=== PATIENT | female | born 1980 | race Caucasian/White ===

== ENCOUNTER → 2019-10-28 07:27 | Outpatient (CLI) | payer OTHER, SELFPAY ==
[2019-10-28 10:09] LABS: Absolute Lymphocyte Count 2.07 X10^3/uL (0.83-4.51); Absolute Neutrophil Count 3.4 X10^3/uL (2.0-7.7); Basophil# 0.03 X10^3/uL; Basophil% 0.5 % (0-1); Eosinophil# 0.04 X10^3/uL; Eosinophils% 0.6 % (0-5); Hematocrit 44.8 % (37-47); Hemoglobin 14.7 g/dL (12.0-15.0); Lymphocyte # 2.07 X10^3/ul (4.0); Mean Corp Hgb Conc 32.8 g/dL (32-36); Mean Corpuscular Hgb 28.8 pg (27.0-32.0); Mean Corpuscular Volume 87.8 fL (81-99); Mean Platelet Vol. 9.7 fl (6.2-12.0); Monocyte# 0.71 X10^3/uL; Monocyte% 11.3 % (0-10); NRBC Flagged by Analyzer 0 % (0-5); Neutrophil % 54.3 % (47-70); Platelet Count 341 K/mm3 (150-450); RBC Distribution Width CV 12.7 % (11.6-14.6); RBC Distribution Width SD 41.2 fl (35.1-43.9); White Blood Count 6.3 K/mm3 (4.4-11.0)
[2019-10-28 10:37] LABS: ALB/GLOB Ratio 1.2 RATIO (0.9-2.4); AST(SGOT) 14 U/L (15-37); Alanine Aminotransfer ALT/SGPT 28 U/L (13-56); Albumin, Serum 4.5 g/dL (3.2-5.0); Alkaline Phosphatase 52 U/L (45-117); Anion Gap 6 (5-15); BUN 15 mg/dL (7-18); BUN/Creat Ratio 19.8 RATIO (10-20); Calcium,Total 9.9 mg/dL (8.5-10.1); Chloride 104 mmol/L (98-107); Creatinine, Serum 0.76 mg/dL (0.55-1.02); EST Glomerular Filtration Rate 90 mL/min (>60); Est Glom Filt Rate - Afr Amer 109 mL/min (>60); Globulin 3.8 g/dL (2.2-4.2); Glucose 79 mg/dL (74-106); Potassium 3.9 mmol/L (3.5-5.1); Protein, Total 8.3 g/dL (6.4-8.2); Sodium Level 136 mmol/L (136-145); Thyroid Stim Hormone (TSH) 2.04 uIU/mL (0.358-3.74)
[2019-10-29 09:49] LABS: Thyroid Peroxidase AB 10 IU/mL (0-34)
[2020-04-04 08:14] VITALS: BMI 24.7
== END ==
PROVIDERS: Referring Provider Dermatology Pediatric Dermatology; Visit Provider Dermatology Pediatric Dermatology
DX: D64.9 Anemia, unspecified (principal)
CPT/HCPCS: 36415; 80053; 84443; 85025; 86376

== ENCOUNTER → 2020-04-04 | Outpatient (CLI) | payer OTHER, SELFPAY ==
[2020-04-04 08:14] VITALS: BMI 24.7
[2020-04-04 20:06] LABS: Chlamydia Trachomatis by PCR Negative (Negative); Neisserai gonorrhoeae by PCR Negative (Negative); Probe Check PASS; Sample Adequacy Control PASS; Specimen Processing Control PASS
[2020-04-09 01:00] LABS: HPV APTIMA, High Risk Negative (Negative)
== END | disposition home or self-care (01) ==
LOC: LABSPEC 14:35
PROVIDERS: Referring Provider Nurse Practitioner Women's Health; Visit Provider Nurse Practitioner Women's Health
DX: Z12.4 Encounter for screening for malignant neoplasm of cervix (principal); O98.319 Other infections with a predominantly sexual mode of transmission complicating pregnancy, unspecified trimester; A64 Unspecified sexually transmitted disease; Z3A.00 Weeks of gestation of pregnancy not specified
CPT/HCPCS: 87491; 87591; 87624; 88175; G0145

== ENCOUNTER → 2020-04-19 12:47 | Outpatient (CLI) | payer OTHER, SELFPAY ==
[2020-04-04 08:14] VITALS: BMI 24.7
--- NOTE | 2020-04-19 12:48 | BI_ITS ---
MAMMOGRAPHY - BILATERAL SCREENING REASON FOR EXAM: Female, 39 years old. Routine annual screening examination. PERTINENT HISTORY: Non-contributory. TECHNIQUE: Digital bilateral breast samir (3D mammographic acquisition) in the CC and MLO projections. 2-D mediolateral oblique (MLO) and craniocaudad (CC) views of both breasts were obtained. CAD: Full Field Digital Mammography with Computer Added Detection was performed. COMPARISON: None. Baseline examination. FINDINGS: Breast Composition: The breasts are extremely dense, which lowers the sensitivity of mammography. There are no dominant masses or suspicious calcifications. No other significant abnormalities are identified. BI/SCREEN MAMM (CAD) W/SAMIR BILAT IMPRESSION: Negative screening mammogram. Yearly followup mammogram recommended. (A) ASSESSMENT CATEGORY: BIRADS Category 1: Negative. A letter regarding these results will be sent to the patient by the facility within 30 days. Approximately 10% of breast cancers are not detected by mammography. A normal mammogram should not delay biopsy of a clinically suspicious abnormality. [id number] Electronically Signed: Ken Goodman, at 14:49 EDT , Service support ,
--- NOTE | 2020-04-19 12:48 | US_ITS ---
STUDY: ULTRASOUND OF THE FEMALE PELVIS - COMPLETE REASON FOR EXAM: Female, 39 years old. Menorrhagia LMP: April 17, 2020. TECHNIQUE: Transabdominal and Transvaginal TECHNICAL QUALITY: Adequate. COMPARISON: None. FINDINGS: The uterus is anteverted and is in a midline position. The uterus measures 8.5 cm x 5.1 cm x 3.9 cm. Normal uterine cervix. The endometrium measures 6.0 mm in thickness, and is hyperechoic. There is no demonstrated endometrial mass. The uterus is of heterogeneous echotexture. 3 small fibroids are seen. The largest measures 2 cm x 1.1 cm x 1.2 cm. I.U.D. - The patient does not have an I.U.D. The right ovary is visualized. The right ovary measures 2.7 cm x 2.4 cm x 1.7 cm. There is no right ovarian cyst or ovarian mass. There is no visualized right adnexal mass or complex lesion. There is normal arterial and normal venous vascularity. The patient is status post left oophorectomy. There is no fluid in the cul-de-sac. The pre void volume of the bladder was 214 ml. Polycystic ovary disease: No. US/Pelvic (Non ) IMPRESSION: Heterogeneous echotexture of the myometrium with 3 small fibroids. Status post left oophorectomy. Electronically Signed: Ken Goodman, at 15:39 EDT , Service support ,
--- NOTE | 2020-04-19 12:48 | US_ITS ---
STUDY: ULTRASOUND OF THE FEMALE PELVIS - COMPLETE REASON FOR EXAM: Female, 39 years old. Menorrhagia LMP: April 17, 2020. TECHNIQUE: Transabdominal and Transvaginal TECHNICAL QUALITY: Adequate. COMPARISON: None. FINDINGS: The uterus is anteverted and is in a midline position. The uterus measures 8.5 cm x 5.1 cm x 3.9 cm. Normal uterine cervix. The endometrium measures 6.0 mm in thickness, and is hyperechoic. There is no demonstrated endometrial mass. The uterus is of heterogeneous echotexture. 3 small fibroids are seen. The largest measures 2 cm x 1.1 cm x 1.2 cm. I.U.D. - The patient does not have an I.U.D. The right ovary is visualized. The right ovary measures 2.7 cm x 2.4 cm x 1.7 cm. There is no right ovarian cyst or ovarian mass. There is no visualized right adnexal mass or complex lesion. There is normal arterial and normal venous vascularity. The patient is status post left oophorectomy. There is no fluid in the cul-de-sac. The pre void volume of the bladder was 214 ml. Polycystic ovary disease: No. US/Transvaginal Non- IMPRESSION: Heterogeneous echotexture of the myometrium with 3 small fibroids. Status post left oophorectomy. Electronically Signed: Ken Goodman, at 15:39 EDT , Service support ,
== END ==
PROVIDERS: Referring Provider Nurse Practitioner Women's Health; Visit Provider Nurse Practitioner Women's Health
DX: Z12.31 Encounter for screening mammogram for malignant neoplasm of breast (principal); N92.0 Excessive and frequent menstruation with regular cycle
CPT/HCPCS: 76830; 76856; 77063; 77067

== ENCOUNTER 2021-04-07 18:02 | Day surgery (SDC) | payer MEDICAID, SELFPAY ==
[2020-07-10 11:30] VITALS: BMI 24.5
[2021-04-07] VITALS (8 sets, daily range): BP systolic 92–137; BP diastolic 55–82; PULSE 70–113; RESP 16–18; TEMP 36.7–37.1; O2SAT 20–100; BMI 24.5; BMI 25.4
--- NOTE | 2021-04-07 | APP_PTH ---
PATIENT: KRYSTAL MACKEY [place] [facility] [place][id number] AGE/SX: 40/F ROOM: RE04/07/[address]: Dr. Susie Fuller MD : [id number] BED: DIS: 04/08/2021 SPEC #: [id number] RECD: 04/09/21 07:03 STATUS: AUGUST RERey #: [id number] BASSAM: 04/07/21 00:[address]: Susie Fuller DEPT: SURGICAL PATHOLOGY RECD BY: Michele Hahn ENTERED: 04/09/21 07:59 SP TYPE: APPENDIX OT DR: No Primary Care Phys Tissues: Appendix, NOS Procedures: Surgery Specimen Level III HEADER OPERATION: Laparoscopic appendectomy PRE-OP DIAGNOSIS: Acute appendicitis TISSUE SUBMITTED: Appendix MICROSCOPIC DIAGNOSIS Appendix, appendectomy: Acute appendicitis and periappendicitis. SJ:keeley 04/10/2021 MICROSCOPIC DESCRIPTION Slides are reviewed. GROSS DESCRIPTION Received in fixative is one container labeled with the patient's name and designated appendix. The specimen consists of an appendix measuring 6 cm in length and up to 0.8 cm in diameter. The attached periappendiceal adipose tissue measures up to 3 cm in width. No obvious perforation is identified. The serosal surface shows a focal area of paul, purulent exudate. The mucosa is congested and hemorrhagic. No fecalith is identified. [employer] sections are submitted in one cassette. / SJ:keeley 04/09/21 TC:2 [facility]: [id number]
[2021-04-07 18:36] LABS: Internal QC Validated? YES +Cl - CLEAR BKGD; Pregnancy, Serum, hCG Quali. NEGATIVE Negative
[2021-04-07 18:36] LABS: Bacteria 0 SEEN /hpf (None Seen); Color, Urine Yellow (Yellow); Glucose, Dipstick Normal (Normal); Leukocyte Esterase-Dipstick Negative /ul (Negative); Mucous, Urine 0 SEEN /hpf (<or=2+); Nitrite-Dipstick Negative (Negative); Occult Blood-Urine Negative /ul (Negative); Protein-Dipstick Negative (Negative); Red Blood Cells-Urine 0 SEEN /hpf (0-5); Squamous Epithelial Cells - UA 0 SEEN /hpf (5-10); Urine Bilirubin Dipstick Negative (Negative); Urine Clarity Clear (Clear); Urine Urobilinogen Normal (Normal); White Blood Cells 0 SEEN /hpf (0-5)
--- NOTE | 2021-04-07 18:38 | CT_ITS ---
STUDY: CT ABDOMEN AND PELVIS WITHOUT CONTRAST REASON FOR EXAM: Female, 40 years old. Pain RADIATION DOSAGE (If Supplied By Facility): CTDIvol = ( 6.98 ) mGy, DLP = ( 347.19 ) mGycm TECHNIQUE: Transaxial images were obtained from the dome of the diaphragm to the symphysis pubis without oral contrast, and without intravenous contrast. Sagittal and coronal images were reconstructed. Individualized dose optimization techniques were used for this CT. COMPARISON: None. FINDINGS: The visualized lung bases are unremarkable. The visualized portions of the heart are within normal limits. Normal liver. Normal gallbladder and extrahepatic biliary system. Normal spleen. Normal pancreas. Normal bilateral adrenal glands. Normal right kidney. Normal left kidney. Normal visualized stomach. Normal small intestine. Normal colon. There is a tubular, thick-walled appendix (10 mm), consistent with acute appendicitis. Mild periappendiceal stranding. Appendicolith. Normal abdominal aorta. Normal inferior vena cava. Normal retroperitoneum. Normal urinary bladder. IUD in uterus. Normal abdominal wall. Normal osseous structures. CT/Abdomen/Pelvis without Cont IMPRESSION: Appendicitis with appendicolith. No pneumoperitoneum or focal fluid collection. Electronically Signed: Dario Chan MD (Brooks) at 19:17 EDT , Service support ,
[2021-04-07 18:39] LABS: Ketone-Dipstick 150 mg/dl (Negative)
--- NOTE | 2021-04-07 18:39 | ED.VIS.GI ---
HPI HPI - GI History of Present Illness Chief Complaint: Abd Pain Detail of Chief Complaint: Patient presents with abdominal pain since 4 AM. Abdominal Pain/Flank Pain Timing: Continuous Quality: Burning and Cramping Current Severity: 8/10 Worsened by: Food and Movement Nausea/Vomiting/Emesis GI Symptom: Positive for Nausea and Vomiting Diarrhea/Melena/Hematochezia GI Symptom: Negative for Diarrhea Narrative Narrative: Patient with abdominal pain since 4 AM. Pain is been continuous to the right lower quadrant. She has had nausea and did vomit x1 to when she try to eat. Patient states she really has not had much appetite. Patient denies any diarrhea. She had a good bowel movement earlier this morning. Patient does not have regular periods and has had both fallopian tubes removed and her left ovary removed. Patient denies dysuria. She denies fever. Prior similar symptoms: No PFSH PFSH Home Medications spironolactone 50 mg tablet See Rx Instructions .ROUTE .COMPLEX 04/04/20 [History Last Taken Unknown] levonorgestrel 20 mcg/24 hours (6 yrs) 52 mg intrauterine device 1 device INTRAUTERINE ONCE 07/10/20 [History Last Taken Unknown] Allergy/AdvReac Type Severity Reaction Status Date / Time No Known Allergies Allergy Verified 04/07/21 18:03 Family History Father Cancer Grandmother Heart disease Surgical History H/O LEEP Ovarian tumor Previous section [place] teeth extracted Social History (Updated 07/10/20 @ 11:47 by Dora Treadwell NP, [employer]IST[employer]) number of children: 1 current occupational status: employed current occupation: Medical Assist. Dermatology Smoking Status: Never smoker alcohol intake: current alcohol intake frequency: holidays/special occasions only substance use type: does not use diet: low carbohydrate caffeine: Yes Type: carbonated beverages Number of servings: 1 and coffee Number of servings: 3 seatbelt use: always do you feel safe at home: Yes ROS ROS ED Constitutional Constitutional ED: Reports systems reviewed and no addt'l complaints, except as documented; Denies body ache(s), change in weight or chills Eyes Eyes: Denies acute decrease in peripheral vision, change in vision, double vision or loss of vision ENT ENT ED: Reports none; Denies ear pain, lip swelling, loss taste/smell, neck pain, otalgia or sore throat Cardiovascular Cardiovascular: Reports none; Denies abdominal pain, chest pain with activity, leg edema, lightheadedness, palpitations, rapid heart rate or syncope Respiratory/Chest Respiratory/Chest: Reports none; Denies change in mental status, dry cough, dyspnea, hemoptysis, shortness of breath at rest or shortness of breath with exertion Gastrointestinal Gastrointestinal: Reports none, abdominal pain, nausea and vomiting; Denies change in stool character, diarrhea, hematemesis, hematochezia, melena or rectal bleeding Genitourinary Genitourinary ED: Reports none; Denies abdominal discomfort, anuria, dysuria, genital pain, hematuria or polyuria Musculoskeletal Musculoskeletal: Reports none; Denies arthralgias, back pain, difficulty walking, extremity pain, muscle weakness or myalgias Integumentary Reports none; Denies abscess or rash Neurologic Neurologic: Reports none; Denies abnormal gait, confusion, focal weakness, frequent falls, headache(s), loss of vision, numbness, paresthesias, radicular pain, vertigo or weakness Psychiatric Psychiatric: Reports systems reviewed and no addt'l complaints, except as documented and none; Denies behavioral changes, confusion, difficulty concentrating, hallucinations, suicidal ideation, tactile hallucinations or visual hallucinations Endocrine Endocrinology: Denies none, cold intolerance, excessive sweating, fatigue or heat intolerance Hematologic/Lymphatic Hematologic/Lymphatic: Reports none; Denies anemia, easy bleeding or easy bruising Allergic/Immunologic Allergic/Immunologic ED: Denies as per HPI, none, lip swelling, mouth swelling, throat swelling, tongue swelling or hives EXAM Physical Exam Const Vital Signs: 04/07/21 18:04 Temperature 98.3 F Temperature Source Temporal Pulse Rate 93 Respiratory Rate 16 Blood Pressure 122/78 H Blood Pressure Mean 92 Pulse Ox 99 Oxygen Delivery Method Room Air Positive well nourished and well developed General Appearance ED: well developed and NAD HEENT Reports TM's clear and moist mucous membranes normocephalic and atraumatic; Negative for trauma or tenderness Tympanic Membrane ED: Yes TM's clear Eyes PERRL and EOMs intact bilaterally General Eye ED: Negative for pale conjunctiva or scleral icterus Neck no lymphadenopathy, supple and no JVD General: Negative for tenderness Chest Wall inspection of chest normal and palpation of chest normal Chest: Negative for tenderness Resp normal respiratory effort and clear to auscultation bilaterally Effort and Inspection: Negative for respiratory distress or pain with movement Auscultation: Negative for rhonchi, wheezes or diminished lung sounds Cardio regular rate, regular rhythm, S1 normal heart sound, S2 normal heart sound and no murmurs Peripheral Pulses: pulses 2+ throughout GI normal to inspection, nondistended, normoactive bowel sounds, soft to palpation, non-distended and no masses; Negative for non-tender Palpation: soft and tender RLQ and McBurney's point Back/Spine no CVA tenderness and no thoracic nor lumbar tenderness Extremity normal to inspection General Extremety ED: Negative for edema General Extremity: Negative for edema Neuro oriented x3, CN's II-XII intact bilaterally, no sensory deficits noted and gait normal Sensorium / Orientation: awake, alert, oriented to person, oriented to place and oriented to time Motor Exam: strength 5/5 throughout and strength abnormal Psych mental status grossly normal Skin no rashes or lesions noted and no wounds MDM MDM MDM Narrative Medical decision making narrative: Patient case discussed with general surgeon on-call Dr. Susie Fuller who will present to the emergency department to evaluate patient for operative intervention for acute appendicitis. Patient was started on Zosyn 4.5 g IV. Covid test ordered presurgery. Lab Data Attestation: I reviewed the patient's lab results. Labs: Laboratory Results - last 24 hr 04/07/21 04/07/21 04/07/21 18:16 18:16 18:16 WBC 17.7 H RBC 4.84 Hgb 14.0 Hct 41.9 MCV 86.6 MCH 28.9 MCHC 33.4 RDW Std Deviation 40.8 RDW Coeff of Cara 13.0 Plt Count 390 MPV 9.5 Immature Gran % (Auto) 0.300 Neut % (Auto) 85.4 H Lymph % (Auto) 5.6 L [place] % (Auto) 8.4 Eos % (Auto) 0.0 Baso % (Auto) 0.3 Absolute Neuts (auto) 15.2 H Absolute Lymphs (auto) 0.99 Nucleated RBC % 0 Sodium Cancelled Potassium Cancelled Chloride Cancelled Carbon Dioxide Cancelled Anion Gap Cancelled BUN Cancelled Creatinine Cancelled Estim Creat Clear Calc Cancelled Est GFR (MDRD) Af Amer Cancelled Est GFR (MDRD) Non-Af Cancelled BUN/Creatinine Ratio Cancelled Glucose Cancelled Calcium Cancelled Total Bilirubin AST ALT Alkaline Phosphatase Total Protein Albumin Globulin Albumin/Globulin Ratio Serum , Qual NEGATIVE Urine Color Urine Clarity Urine pH Ur Specific [place] Urine Protein Urine Glucose (UA) Urine Ketones Urine Occult Blood Urine Nitrite Urine Bilirubin Urine Urobilinogen Ur Leukocyte Esterase Urine RBC Urine WBC Ur Squamous Epith Cells Urine Bacteria Urine Mucus 04/07/21 04/07/21 18:16 18:30 WBC RBC Hgb Hct MCV MCH MCHC RDW Std Deviation RDW Coeff of Cara Plt Count MPV Immature Gran % (Auto) Neut % (Auto) Lymph % (Auto) [place] % (Auto) Eos % (Auto) Baso % (Auto) Absolute Neuts (auto) Absolute Lymphs (auto) Nucleated RBC % Sodium 136 Potassium 3.6 Chloride 103 Carbon Dioxide 21.0 Anion Gap 12 BUN 8 Creatinine 0.69 Estim Creat Clear Calc 92.65 Est GFR (MDRD) Af Amer 120 Est GFR (MDRD) Non-Af 99 BUN/Creatinine Ratio 11.6 Glucose 93 Calcium 10.1 Total Bilirubin 0.60 AST 17 ALT 32 Alkaline Phosphatase 59 Total Protein 8.4 H Albumin 4.7 Globulin 3.7 Albumin/Globulin Ratio 1.3 Serum , Qual Urine Color Yellow Urine Clarity Clear Urine pH 6.0 Ur Specific [place] 1.010 Urine Protein Negative Urine Glucose (UA) Normal Urine Ketones 150 A* Urine Occult Blood Negative Urine Nitrite Negative Urine Bilirubin Negative Urine Urobilinogen Normal Ur Leukocyte Esterase Negative Urine RBC 0 SEEN Urine WBC 0 SEEN Ur Squamous Epith Cells 0 SEEN Urine Bacteria 0 SEEN Urine Mucus 0 SEEN Radiography Diagnostic Testing: Radiology Impression Abdomen/Pelvis CT 04/07/21 18:38 IMPRESSION: Appendicitis with appendicolith. No pneumoperitoneum or focal fluid collection. Electronically Signed: Dario Chan MD (Bro[place]) at 19:17 EDT , Service support , Discharge Plan Triage Chief Complaint: Abd Pain ED Provider: Harvinder Hines Dx/Rx/DC Orders Clinical Impression: Acute appendicitis Prescriptions: No Action spironolactone [Aldactone] 50 mg tablet See Rx Instructions .ROUTE .COMPLEX RF: 0 Mirena 20 mcg/24 hours (5 yrs) 52 mg intrauterine device 1 device intrauterine ONCE RF: 0 Primary Care Provider: Care Physician,No Primary Referrals: Care Physician,No Primary [Primary Care Provider] - Disposition Disposition: Acute Care Hospital [facility]
[2021-04-07 19:02] LABS: ALB/GLOB Ratio 1.3 RATIO (0.9-2.4); AST(SGOT) 17 U/L (15-37); Alanine Aminotransfer ALT/SGPT 32 U/L (13-56); Albumin, Serum 4.7 g/dL (3.2-5.0); Alkaline Phosphatase 59 U/L (45-117); Anion Gap 12 (5-15); BUN 8 mg/dL (7-18); BUN/Creat Ratio 11.6 RATIO (10-20); Calcium,Total 10.1 mg/dL (8.5-10.1); Chloride 103 mmol/L (98-107); Creatinine, Serum 0.69 mg/dL (0.55-1.02); EST Glomerular Filtration Rate 99 mL/min (>60); Est Glom Filt Rate - Afr Amer 120 mL/min (>60); Estimated Creatinine Clearance 92.65 ml/min; Globulin 3.7 g/dL (2.2-4.2); Glucose 93 mg/dL (74-106); Potassium 3.6 mmol/L (3.5-5.1); Protein, Total 8.4 g/dL (6.4-8.2); Sodium Level 136 mmol/L (136-145)
[2021-04-07] MEDS: Ondansetron 4 MG/2 ML Vial IV (19:15)
[2021-04-07] MEDS: Morphine 4 MG/ML Syringe IV (19:15)
[2021-04-07] MEDS: 0.9% Normal Saline 1,000 ML 125 ML IV (19:15)
[2021-04-07 19:33] LABS: Absolute Lymphocyte Count 0.99 X10^3/uL (0.83-4.51); Absolute Neutrophil Count 15.2 X10^3/uL (2.0-7.7); Basophil# 0.05 X10^3/uL; Basophil% 0.3 % (0-1); Hematocrit 41.9 % (37-47); Lymphocyte # 0.99 X10^3/ul (0.83-4.51); Lymphocyte % 5.6 % (19-41); Mean Corp Hgb Conc 33.4 g/dL (32-36); Mean Corpuscular Hgb 28.9 pg (27.0-32.0); Mean Corpuscular Volume 86.6 fL (81-99); Mean Platelet Vol. 9.5 fl (6.2-12.0); Monocyte# 1.48 X10^3/uL; Monocyte% 8.4 % (0-10); NRBC Flagged by Analyzer 0 % (0-5); Neutrophil # 15.15 X10^3/uL (2.7-7.7); Neutrophil % 85.4 % (47-70); Platelet Count 390 K/mm3 (150-450); RBC Distribution Width SD 40.8 fl (35.1-43.9); Red Blood Count 4.84 M/mm3 (4.2-5.4); White Blood Count 17.7 K/mm3 (4.4-11.0)
--- NOTE | 2021-04-07 20:38 | PCM.HP.BLA ---
History and Physical Date of Admission: 04/07/21 Chief Complaint: abdominal pain History of Present Illness: 40 y/o WF presents with lower abdominal pain This began very early this morning She denies fevers. She has had nausea and emesis and has decreased appetite.. She presented to ED and found to have elevated WBC of 17.7K with left shift of differential. 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 surgery Medications: spironolactone for dermatological condition levonorgestrel Allergies: Has no known drug allergies Social history: TOB use denies Review of Systems: General - denies fevers Cardiovascular denies chest pain, denies history of heart attacks Pulmonary denies shortness of breath, denies coughing up blood Gastrointestinal as per HPI, denies blood in stools Neurological denies numbness/weakness of extremities, denies seizures, denies history of stroke Genitourinary denies burning with urination, denies blood in urine Hematological denies spontaneous/prolonged bleeding Skin denies open nonhealing wounds Musculoskeletal denies history of fractures Endocrine denies diabetes Psychological denies hallucinations Physical examination: Vital signs Temp 98.2F HR 80 RR 16 BP 114/74 General WD/WN WF in no apparent distress, alert and oriented, not septic appearing HEENT Normocephalic. EOM intact with sclera clear . Neck is supple with no jugular venous distention noted. Trachea is midline. . Lungs normal respiratory excursion, no adventitial sounds noted No labored breathing noted, such as retractions. No cough heard. Heart regular by monitor. Abdomen soft but tender in right lower quadrant with rebound tenderness . Extremities no pitting edema noted. Genitourinary/Rectal deferred Skin no rashes noted. Normal skin integrity. Neurological non focal Psychological normal affect, patient is calm and appropriate Impression: right lower quadrant abdominal pain appendicitis by CT scan leukocytosis Discussion/Plan: I have discussed the above with the patient and her who is present with her I have offered the patient the procedure of laparoscopic appendectomy. I have explained the procedure to the patient. I have counseled the patient as to the risks of the procedure, including but not limited to: infection, bleeding, injury to any blood vessels/nerves, scar tissue, injury to any intraabdominal organs, injury to kidney/ureters, injury to bowel/bladder, intraabdominal abscess/bleeding, hernias at incisional sites, wound infections, possible open procedure, complications of anesthesia, postoperative pneumonia/cardiac problems/blood clots etc. the patient understands. The patient was offered a surgery/procedure. The provider and patient have discussed in detail the risk of exposure to and/or potential harm posed by the COVID-19 virus with having a surgery/procedure at this time versus the risk of delaying the surgery/procedure. It is not possible to know either the risk of delaying the surgery or procedure or chance of getting an infection with perfect accuracy, but a joint decision was made between the patient and the provider to proceed at this time with the scheduled surgery/procedure. She wishes to proceed. I have answered all questions to the patient?s satisfaction and the patient has no further questions.
[2021-04-07] MEDS: Bupivacaine 0.25%-Epi/Pf 1:200,000 10 ML ×2 (22:05)
[2021-04-07] MEDS: Lactated Ringers 1,000 ML 100 ML IV (22:16)
--- NOTE | 2021-04-07 22:36 | OP.PCM_ITS ---
Report of Operation Date of Procedure: 04/07/21 Pre-Operative Diagnosis: appendicitis Post-Operative Diagnosis: appendicitis Surgeon: Susie Fuller Type of Anesthesia: General Anesthesiologist: Jacquelyn Silva Specimen's removed: appendix Estimated Blood Loss (mL): < 10 ml Fluids Replaced: 1000 ml RL Description of Procedure: After informed consent was obtained, the patient was brought into the Operating Room. Appropriate time out protocol was followed. The patient was placed in the supine position on the operating table. The patient was then placed under general anesthesia by the anesthesia provider. The patient?s abdomen was then prepped with a sterile surgical skin preparation and sterile surgical drapes were placed. The infraumbilical skin fold was grasped with penetrating towel clamps and the skin and subcutaneous tissues were infiltrated with 0.25% marcaine with epinephrine. A incision was then made with a 15 blade scalpel. A Veress needle was then inserted into the intraabdominal cavity and checked to be in the proper position with a normal saline drop test. A CO2 pneumoperitoneum was then created. Once this was achieved, the Veress needle was removed and a 5 mm trocar was placed in its stead. A 5 mm laparoscope was then inserted into the trocar. Careful examination of the intraabdominal contents was then done. There was no evidence of injury to any internal organs from placement of the Veress needle or the trocar. Under direct visualization, a 12mm suprapubic trocar and a 5mm left lower quadrant trocar was then placed into the intraabdominal cavity. The skin and subcutaneous tissues at these sites were first infiltrated with 0.25% marcaine with epinephrine. Attention was then directed to the right lower quadrant. The appendix was visualized. The appendix appeared enlarged/edematous/injected/with surrounding inflammation. The mesentery of the appendix was taken down by cauterizing the tissue from the free edge to the base of the appendix using the Harmonic scalpel. Once the base of the appendix was freed of surrounding tissues, then the linear gastrointestinal stapling device was brought into the abdominal cavity via the 12mm port and placed across the base of the appendix. The stapling device was fired, thus stapling across the base of the appendix and tr ansecting it simultaneously. There was no evidence of perforation of the appendix. There was cloudy/purulent peritoneal fluid noted in the pelvic area. The pelvic cavity was vigorously irrigated with normal saline and all irrigant was aspirated out. The appendix was placed in an Endobag and this was brought out through the suprapubic trocar. The appendix was forwarded to Pathology for analysis. The appendiceal stump was carefully examined. There was no evidence of any active bleeding or fecal leakage. The surrounding tissues were also examined and there was no evidence of any active bleeding or fecal/bile leakage. The intraabdominal cavity was examined and there was no evidence of any further inflammation or tissue abnormality. The CO2 pneumoperitoneum was released and all trocars were removed intact. The suprapubic fascia was reapproximated with a figure-of-8 vicryl suture. All skin incisions were reapproximated with monocryl suture. Cavilon and steristrips were applied to reinforce skin closure and proper sterile dressings were placed. Sponge, needle, and instrument count were verified and correct at the time of skin closure. The patient was then extubated and brought to the Recovery Room in stable condition. Procedure Start Time: 22:05 Procedure Stop Time: 22:37 Complications none noted Admit VTE Documentation VTE Mechan Device Prophylaxis: SCD's
[2021-04-08 01:32] VITALS: BP 86/52; PULSE 57; RESP 16; TEMP 36.4; O2SAT 97
[2021-04-08 02:00] VITALS: BP 102/54; PULSE 56
[2021-04-08] MEDS: Lactated Ringers 1,000 ML 100 ML IV (03:39)
[2021-04-08 03:42] VITALS: BP 96/48; PULSE 55; RESP 16; TEMP 36.7; O2SAT 98
[2021-04-08 05:53] VITALS: BP 99/58; PULSE 63; RESP 16; TEMP 36.6; O2SAT 99
[2021-04-08] MEDS: 0.9% Normal Saline 250 ML IV.SOLN. IV (06:10)
--- NOTE | 2021-04-08 09:41 | DCINST_ITS ---
Discharge Instructions Follow Up Care Test Results: Test results from this visit will be discussed in further detail at your follow-up appointment, if applicable. Discharge Plan Admission Attending Provider: Susie Fuller Primary Care Provider: Care Physician,No Primary Instructions Additional Instructions / Restrictions: Recommended pain control regimen - May take 600 mg ibuprofen (Motrin) and then in 3-4 hours, may take 650 mg acetaminophen (Tylenol), then in 3-4 hours may take 600 mg ibuprofen, then in 3- 4 hours may take 650 mg acetaminophen and so on for 2-3 days May take narcotic pain medication for pain that is not controlled by above and at night for comfort through the night Leave dressings in place May get dressings wet in shower - do not scrub in the area and pat dry Do not soak - no tub baths/swimming Ice applied to areas of discomfort may help No lifting/pushing/pulling greater than 20 pounds for .two weeks Please call for a follow up appointment in 1-2 weeks, Avoid carbonated beverages for a couple of days, as they may cause abdominal bloating and add to your discomfort Discharge Orders/Prescriptions Prescriptions: New hydrocodone-acetaminophen 5-325 mg tablet 1 tab PO Q8H 5 Days Qty: 15 RF: 0 No Action spironolactone [Aldactone] 50 mg tablet See Rx Instructions .ROUTE .COMPLEX RF: 0 Mirena 20 mcg/24 hours (5 yrs) 52 mg intrauterine device 1 device intrauterine ONCE RF: 0 Referrals / Follow Up: Care Physician,No Primary [Primary Care Provider] - Disposition Discharge Orders: Discharge Patient (Routine); Ordered 04/07/21 Ordered By: Dr. Susie Fuller
--- NOTE | 2021-04-08 09:42 | PN.SURG_ITS ---
Subjective Subjective Patient feels improved, much less abdominal pain Objective Data Objective Data Vital Signs: Vital Signs Temp Pulse Resp BP Pulse Ox 97.9 F 63 16 99/58 L 99 04/08/21 05:53 04/08/21 05:53 04/08/21 05:53 04/08/21 05:53 04/08/21 05:53 Oxygen Delivery Method Room Air Weight: 67.132 kg Body Mass Index (BMI) 25.4 Intake & Output: Intake and Output for Last 24 Hours 04/06/21 04/07/21 04/08/21 23:59 23:59 23:59 Intake Total 1100 / 1100 988.33 / 988.33 Balance 1100 / 1100 988.33 / 988.33 Lab / Micro Data Result Diagrams: 04/07/21 18:16 04/07/21 18:16 Labs: Laboratory Results - last 24 hr 04/07/21 04/07/21 04/07/21 18:16 18:16 18:16 WBC 17.7 H RBC 4.84 Hgb 14.0 Hct 41.9 MCV 86.6 MCH 28.9 MCHC 33.4 RDW Std Deviation 40.8 RDW Coeff of Cara 13.0 Plt Count 390 MPV 9.5 Immature Gran % (Auto) 0.300 Neut % (Auto) 85.4 H Lymph % (Auto) 5.6 L [place] % (Auto) 8.4 Eos % (Auto) 0.0 Baso % (Auto) 0.3 Absolute Neuts (auto) 15.2 H Absolute Lymphs (auto) 0.99 Nucleated RBC % 0 Sodium Cancelled Potassium Cancelled Chloride Cancelled Carbon Dioxide Cancelled Anion Gap Cancelled BUN Cancelled Creatinine Cancelled Estim Creat Clear Calc Cancelled Est GFR (MDRD) Af Amer Cancelled Est GFR (MDRD) Non-Af Cancelled BUN/Creatinine Ratio Cancelled Glucose Cancelled Calcium Cancelled Total Bilirubin AST ALT Alkaline Phosphatase Total Protein Albumin Globulin Albumin/Globulin Ratio Serum , Qual NEGATIVE Urine Color Urine Clarity Urine pH Ur Specific [place] Urine Protein Urine Glucose (UA) Urine Ketones Urine Occult Blood Urine Nitrite Urine Bilirubin Urine Urobilinogen Ur Leukocyte Esterase Urine RBC Urine WBC Ur Squamous Epith Cells Urine Bacteria Urine Mucus 04/07/21 04/07/21 18:16 18:30 WBC RBC Hgb Hct MCV MCH MCHC RDW Std Deviation RDW Coeff of Cara Plt Count MPV Immature Gran % (Auto) Neut % (Auto) Lymph % (Auto) Ventura % (Auto) Eos % (Auto) Baso % (Auto) Absolute Neuts (auto) Absolute Lymphs (auto) Nucleated RBC % Sodium 136 Potassium 3.6 Chloride 103 Carbon Dioxide 21.0 Anion Gap 12 BUN 8 Creatinine 0.69 Estim Creat Clear Calc 92.65 Est GFR (MDRD) Af Amer 120 Est GFR (MDRD) Non-Af 99 BUN/Creatinine Ratio 11.6 Glucose 93 Calcium 10.1 Total Bilirubin 0.60 AST 17 ALT 32 Alkaline Phosphatase 59 Total Protein 8.4 H Albumin 4.7 Globulin 3.7 Albumin/Globulin Ratio 1.3 Serum , Qual Urine Color Yellow Urine Clarity Clear Urine pH 6.0 Ur Specific [place] 1.010 Urine Protein Negative Urine Glucose (UA) Normal Urine Ketones 150 A* Urine Occult Blood Negative Urine Nitrite Negative Urine Bilirubin Negative Urine Urobilinogen Normal Ur Leukocyte Esterase Negative Urine RBC 0 SEEN Urine WBC 0 SEEN Ur Squamous Epith Cells 0 SEEN Urine Bacteria 0 SEEN Urine Mucus 0 SEEN Micro: Microbiology 04/07/21 19:55 Mucosa - Nasopharyngeal SARS-CoV-2 Antigen (Rapid) - Final Radiography Diagnostic Testing: Radiology Impression Abdomen/Pelvis CT 04/07/21 18:38 IMPRESSION: Appendicitis with appendicolith. No pneumoperitoneum or focal fluid collection. Electronically Signed: Dario Chan MD ([place]) at 19:17 EDT , Service support , Physical Exam Narrative abdomen is soft and benign, dressings intact no seepage noted
== END 2021-04-08 11:27 ==
LOC: ED 20:01 → SDC 20:11 → AC 20:13 → MS3 04-11 10:26
PROVIDERS: Emergency Provider Emergency Medicine; Visit Provider Surgery
PROC: 0DTJ4ZZ Resection of Appendix, Percutaneous Endoscopic Approach (ICD-10-PCS; CPT 44970; principal; 2021-04-07 21:45)
DX: K35.80 Unspecified acute appendicitis (principal)
CPT/HCPCS: 00840; 44970; 74176; 80053; 81001; 84703; 85025; 87426; 88304; 99285; J7030; J7050; J7120; A4216; J2405

== ENCOUNTER → 2021-09-26 16:04 | Outpatient (CLI) | payer MEDICAID, SELFPAY ==
--- NOTE | 2021-09-26 16:06 | BI_ITS ---
MAMMOGRAPHY - BILATERAL SCREENING REASON FOR EXAM: Female, 40 years old. Routine annual screening examination. PERTINENT HISTORY: Non-contributory. TECHNIQUE: Digital bilateral breast samir (3D mammographic acquisition) in the CC and MLO projections. 2-D mediolateral oblique (MLO) and craniocaudad (CC) views of both breasts were obtained. CAD: Full Field Digital Mammography with Computer Added Detection was performed. COMPARISON: Comparison is made with prior study dated 04/19/2020 FINDINGS: Breast Composition: The breasts are extremely dense, which lowers the sensitivity of mammography. There are no dominant masses or suspicious calcifications. No other significant abnormalities are identified. There has been no significant change since the prior study. BI/SCRN MAMM (CAD)W/SAMIR BILAT IMPRESSION: Stable bilateral screening mammogram. Yearly follow-up mammogram recommended. (A) ASSESSMENT CATEGORY: BIRADS Category 1: Negative. A letter regarding these results will be sent to the patient by the facility within 30 days. Approximately 10% of breast cancers are not detected by mammography. A normal mammogram should not delay biopsy of a clinically suspicious abnormality. [id number] Electronically Signed: Ken Goodman MD at 8:24 EST , Service support ,
== END ==
PROVIDERS: Visit Provider Obstetrics & Gynecology
DX: Z12.31 Encounter for screening mammogram for malignant neoplasm of breast (principal)
CPT/HCPCS: 77063; 77067

== ENCOUNTER → 2022-06-10 | Outpatient (CLI) | payer MEDICAID, SELFPAY ==
[2022-06-10 14:04] LABS: Vitamin D,25 Hydroxy 54.7 ng/mL
[2022-06-10 14:08] LABS: Cholesterol 168 mg/dL (200); Glucose 93 mg/dL (74-106); High Density Lipoprotein 77 mg/dL; Thyroid Stim Hormone (TSH) 1.98 uIU/mL (0.358-3.74); Triglycerides 78 mg/dL; Very Low Density Lipoprotein 16 mg/dL (5-40)
== END | disposition home or self-care (01) ==
PROVIDERS: Referring Provider Obstetrics & Gynecology; Visit Provider Obstetrics & Gynecology
DX: Z13.1 Encounter for screening for diabetes mellitus (principal); Z13.220 Encounter for screening for lipoid disorders; Z13.29 Encounter for screening for other suspected endocrine disorder; Z13.21 Encounter for screening for nutritional disorder
CPT/HCPCS: 36415; 80061; 82306; 82947; 84443

== ENCOUNTER → 2022-06-14 | Outpatient (CLI) | payer MEDICAID, SELFPAY ==
[2022-06-14 12:12] LABS: Absolute Lymphocyte Count 2.29 X10^3/uL (0.83-4.51); Absolute Neutrophil Count 3.3 X10^3/uL (2.0-7.7); Basophil# 0.04 X10^3/uL; Basophil% 0.6 % (0-1); Eosinophil# 0.05 X10^3/uL; Eosinophils% 0.8 % (0-5); Hematocrit 41.8 % (37-47); Hemoglobin 14.1 g/dL (12.0-15.0); Lymphocyte # 2.29 X10^3/ul (0.83-4.51); Mean Corp Hgb Conc 33.7 g/dL (32-36); Mean Corpuscular Hgb 29.5 pg (27.0-32.0); Mean Corpuscular Volume 87.4 fL (81-99); Mean Platelet Vol. 9.1 fl (6.2-12.0); Monocyte# 0.71 X10^3/uL; Monocyte% 11.2 % (0-10); NRBC Flagged by Analyzer 0 % (0-5); Neutrophil # 3.25 X10^3/uL (2.7-7.7); Neutrophil % 51.1 % (47-70); Platelet Count 363 K/mm3 (150-450); RBC Distribution Width CV 12.4 % (11.6-14.6); RBC Distribution Width SD 39.8 fl (35.1-43.9); Red Blood Count 4.78 M/mm3 (4.2-5.4); White Blood Count 6.4 K/mm3 (4.4-11.0)
[2022-06-14 12:44] LABS: ALB/GLOB Ratio 1.2 RATIO (0.9-2.4); AST(SGOT) 19 U/L (15-37); Alanine Aminotransfer ALT/SGPT 23 U/L (13-56); Albumin, Serum 4.3 g/dL (3.2-5.0); Alkaline Phosphatase 71 U/L (45-117); Anion Gap 4 (5-15); BUN 9 mg/dL (7-18); BUN/Creat Ratio 11.7 RATIO (10-20); Calcium,Total 9.6 mg/dL (8.5-10.1); Chloride 105 mmol/L (98-107); Creatinine, Serum 0.77 mg/dL (0.55-1.02); EST Glomerular Filtration Rate 87 mL/min (>60); Est Glom Filt Rate - Afr Amer 106 mL/min (>60); Globulin 3.6 g/dL (2.2-4.2); Glucose 94 mg/dL (74-106); Potassium 3.9 mmol/L (3.5-5.1); Protein, Total 7.9 g/dL (6.4-8.2); Sodium Level 135 mmol/L (136-145)
== END | disposition home or self-care (01) ==
LOC: WOBLAB 11:57 → PAVLAB 12:02
PROVIDERS: Referring Provider Obstetrics & Gynecology; Visit Provider Obstetrics & Gynecology
DX: N94.6 Dysmenorrhea, unspecified (principal); N92.0 Excessive and frequent menstruation with regular cycle; R53.83 Other fatigue
CPT/HCPCS: 36415; 80053; 85025

== ENCOUNTER → 2022-10-11 | Outpatient (CLI) | payer MEDICAID, SELFPAY ==
--- NOTE | 2022-10-11 13:50 | US_ITS ---
STUDY: ULTRASOUND OF THE FEMALE PELVIS - COMPLETE REASON FOR EXAM: Female, 41 years old. AUB TECHNIQUE: Endovaginal. Transvaginal US was obtained to better visualized the ovaries. COMPARISON: 04.19.20. FINDINGS: The uterus is anteverted and is tilted to the right side of the pelvis. The uterus measures 11.2 x 5.2 cm. There is a Nabothian cyst of the cervix. The endometrium measures 2.7 mm in thickness, and is hyperechoic. There is no demonstrated endometrial mass. Uterine fibroids measure 18 x 18mm and 18 x 16 mm. I.U.D. - The patient does have an I.U.D. The right ovary is visualized. The right ovary measures 5 x 4.6 cm. Cyst measures 42 x 42 mm. No follow-up required. There is no visualized right adnexal mass or complex lesion. There is normal arterial and normal venous vascularity. There is nonvisualization of the left ovary due to overlying bowel gas. There is no fluid in the cul-de-sac. Urinary bladder volume is (in cc) 44. US/Pelvic (Non ) IMPRESSION: There is a Nabothian cyst of the cervix. Fibroid uterus. Electronically Signed: Sid Bryant MD at 16:47 EST ,
--- NOTE | 2022-10-11 13:50 | US_ITS ---
STUDY: ULTRASOUND OF THE FEMALE PELVIS - COMPLETE REASON FOR EXAM: Female, 41 years old. AUB TECHNIQUE: Endovaginal. Transvaginal US was obtained to better visualized the ovaries. COMPARISON: 04.19.20. FINDINGS: The uterus is anteverted and is tilted to the right side of the pelvis. The uterus measures 11.2 x 5.2 cm. There is a Nabothian cyst of the cervix. The endometrium measures 2.7 mm in thickness, and is hyperechoic. There is no demonstrated endometrial mass. Uterine fibroids measure 18 x 18mm and 18 x 16 mm. I.U.D. - The patient does have an I.U.D. The right ovary is visualized. The right ovary measures 5 x 4.6 cm. Cyst measures 42 x 42 mm. No follow-up required. There is no visualized right adnexal mass or complex lesion. There is normal arterial and normal venous vascularity. There is nonvisualization of the left ovary due to overlying bowel gas. There is no fluid in the cul-de-sac. Urinary bladder volume is (in cc) 44. US/Transvaginal Non- IMPRESSION: There is a Nabothian cyst of the cervix. Fibroid uterus. Electronically Signed: Sid Bryant MD at 16:47 EST ,
== END | disposition home or self-care (01) ==
LOC: US 13:49
PROVIDERS: Referring Provider Obstetrics & Gynecology; Visit Provider Obstetrics & Gynecology
DX: N92.1 Excessive and frequent menstruation with irregular cycle (principal)
CPT/HCPCS: 76830; 76856

== ENCOUNTER → 2022-11-21 | Outpatient (CLI) | payer MEDICAID, SELFPAY ==
--- NOTE | 2022-11-21 14:02 | BI_ITS ---
MAMMOGRAPHY - BILATERAL SCREENING REASON FOR EXAM: Female, 42 years old. Routine annual screening examination. PERTINENT HISTORY: Non-contributory. TECHNIQUE: Digital bilateral breast samir (3D mammographic acquisition) in the CC and MLO projections. 2-D mediolateral oblique (MLO) and craniocaudad (CC) views of both breasts were obtained. CAD: Full Field Digital Mammography with Computer Added Detection was performed. COMPARISON: Comparison is made with prior study 09/26/2021 and 04/19/2020. FINDINGS: Breast Composition: The breasts are extremely dense, which lowers the sensitivity of mammography. There are no dominant masses or suspicious calcifications. No other significant abnormalities are identified. There has been no significant change since the prior study. BI/SCRN MAMM (CAD)W/SAMIR BILAT IMPRESSION: Stable bilateral screening mammogram. Yearly follow-up mammogram recommended. (A) ASSESSMENT CATEGORY: BIRADS Category 1: Negative. A letter regarding these results will be sent to the patient by the facility within 30 days. Approximately 10% of breast cancers are not detected by mammography. A normal mammogram should not delay biopsy of a clinically suspicious abnormality. [id number] Electronically Signed: Ken Goodman MD at 15:19 EST ,
== END | disposition home or self-care (01) ==
LOC: OPBI 14:01
PROVIDERS: Visit Provider Obstetrics & Gynecology
DX: Z12.31 Encounter for screening mammogram for malignant neoplasm of breast (principal)
CPT/HCPCS: 77063; 77067

== ENCOUNTER 2022-12-10 17:11 | Observation (INO) | payer MEDICAID, SELFPAY ==
--- NOTE | 2022-12-05 10:55 | EKG12_ITS ---
Test Reason : PREOP Blood Pressure : / mmHG Vent. Rate : 061 BPM Atrial Rate : 061 BPM P-R Int : 154 ms QRS Dur : 072 ms QT Int : 422 ms P-R-T Axes : 025 041 020 degrees QTc Int : 424 ms Normal sinus rhythm Normal ECG Confirmed by SVEN BLACKMAN, DARRELL ([id number]), supervising editor news reel TIFFANY VINCENT ([id number]) on 12/09/2022 9:44:37 AM Referred By: Lety Marcos Confirmed By:DONALD MACHUCA MD
[2022-12-05 11:09] LABS: Absolute Lymphocyte Count 1.96 X10^3/uL (0.83-4.51); Absolute Neutrophil Count 3.8 X10^3/uL (2.0-7.7); Basophil# 0.03 X10^3/uL; Basophil% 0.5 % (0-1); Eosinophil# 0.03 X10^3/uL; Eosinophils% 0.5 % (0-5); Hematocrit 39.2 % (37-47); Lymphocyte # 1.96 X10^3/ul (0.83-4.51); Lymphocyte % 30.4 % (19-41); Mean Corp Hgb Conc 33.2 g/dL (32-36); Mean Corpuscular Hgb 28.8 pg (27.0-32.0); Mean Corpuscular Volume 86.7 fL (81-99); Mean Platelet Vol. 9.3 fl (6.2-12.0); Monocyte# 0.56 X10^3/uL; Monocyte% 8.7 % (0-10); NRBC Flagged by Analyzer 0 % (0-5); Neutrophil # 3.84 X10^3/uL (2.7-7.7); Neutrophil % 59.6 % (47-70); Platelet Count 341 K/mm3 (150-450); RBC Distribution Width CV 12.2 % (11.6-14.6); Red Blood Count 4.52 M/mm3 (4.2-5.4); White Blood Count 6.4 K/mm3 (4.4-11.0)
[2022-12-05 11:33] LABS: Anion Gap 6 (5-15); BUN 12 mg/dL (7-18); BUN/Creat Ratio 16.7 RATIO (10-20); Calcium,Total 9.3 mg/dL (8.5-10.1); Chloride 108 mmol/L (98-107); Creatinine, Serum 0.72 mg/dL (0.55-1.02); EST Glomerular Filtration Rate 94 mL/min (>60); Est Glom Filt Rate - Afr Amer 114 mL/min (>60); Glucose 96 mg/dL (74-106); Magnesium 1.9 mg/dL (1.6-2.6); Potassium 3.6 mmol/L (3.5-5.1); Sodium Level 139 mmol/L (136-145)
[2022-12-05 11:36] LABS: Internal QC Validated? YES +Cl - CLEAR BKGD; Pregnancy, Urine Negative Negative
[2022-12-10] VITALS (23 sets, daily range): BP systolic 84–105; BP diastolic 48–68; PULSE 67–103; RESP 9–18; TEMP 36.3–37.7; O2SAT 93–100; BMI 26.9
--- NOTE | 2022-12-10 02:32 | HP.PCM_ITS ---
History and Physical [facility] [address] [place] [address] OFFICE VISIT Date of Service:? 11/21/22 MR#: [id number] Acct: [id number] Name:KRYSTAL PALOMO Rep #: [id number] : 1980 ? ? Provider: Dr. Lety Marcos MD Age/Sex:? 42/F ? ? [place] [facility] [place] Status: Signed Intake Vital Signs ? 11/21/2314:12 11/21/2314:13 Height 1.63 m 1.63 m Weight: 70.76 kg ? BMI 26.7 ? BP 107/55 L ? Intake Visit Reasons:?1 MONTH FOLLOW UP [employer] Required: No Is patient in pain?: No Allergies No Known Allergies Allergy (Verified 11/21/22 15:12) Medications spironolactone 50 mg tablet (Aldactone) See Rx Instructions .Route .COMPLEX 04/04/20 [History Confirmed 11/21/22] levonorgestrel 20 mcg/24 hours (8 yrs) 52 mg intrauterine device (Mirena) 1 device intrauterine ONCE 07/10/20 [History Confirmed 11/21/22] bupropion HCl 150 mg 24 hr tablet, extended release (Wellbutrin XL) 150 mg PO QAM #30 tabs 10/14/22 [Rx Confirmed 11/21/22] Post menopausal: No Patient : No : No PFSH Medical History? Cancer Surgical History? H/O LEEP History of appendectomy Ovarian tumor Previous section [place] teeth extracted Family History? Father CancerGrandmother Heart disease Social History? number of children:? 1 current occupational status:? employed current occupation:? [employer] Smoking Status:? Never smoker alcohol intake:? current alcohol intake frequency: holidays/special occasions only substance use type:? does not use diet:? low carbohydrate caffeine:? Yes Type: carbonated beverages Number of servings: 1 and coffee Number of servings: 3 seatbelt use:? always do you feel safe at home:? Yes additional social history:? works for a [employer] HPI 1 MONTH FOLLOW UP Details: KRYSTAL MACKEY is a 42 year old who presents for fu of abnormal bleeding and dysmenorrhea, she is also having some decreased appetite and upper abdominal cramping.she feels pelvic discomfort and the IUD hasn't helped.? US shows enlarged uterus with several fibroids.? 4 cm ovarian cyst.? she denies dyspareunia, bloating, nausea cramping. she is wanting definitive therapy. Female Reproductive History Menopausal Symptoms: No hot flashes, No night sweats, No difficulty concentrating and No change in libido History ? ? ? 3 ? Elective abortions ? ? ? 2 Hx Para ? ? ? 1 ? Spontaneous abortions ? Hx # Term Pregnancies ? Ectopic pregnancies ? Hx # Pregnancies ? Multiple births ? # of living children ? ? ? 1 Past Pregnancies Del. Date Name GA/Weeks Outcome Route Bth Weight Infant Gen Labor Lgth Anesthesia Del Locatn Provider FOB Unknown Davion? ? 2004 ? ROS Const Constitutional: Reports as per HPI; Denies fatigue, increased appetite, poor appetite, night sweats, weight gain or weight loss ENT ENT: Reports system reviewed and no additional complaints, except as documented Cardio Card: Denies chest pain Resp Resp: Denies cough or dyspnea GI GI: Reports as per HPI, bloating and nausea; Denies abdominal pain, constipation or vomiting : Reports as per HPI, urinary frequency, urinary urgency and other; Denies difficulty voiding, dysuria, hematuria, hot flashes, nipple discharge, pelvic pain, prolapse symptoms, urinary incontinence, vaginal discharge, vaginal dryness, vaginal odor or vaginal pruritus Musc Musc: Denies arthralgias, back pain or muscle weakness Skin Skin/Breast: Denies changing lesions, breast mass, breast pain, breast skin changes or nipple discharge Neuro Neuro: Reports system reviewed and no additional complaints, except as documented Psych Psych: Denies anxiety, change in libido, depression or difficulty concentrating Endo Endo: Denies cold intolerance, excessive sweating, heat intolerance or polydipsia Bennett/Lymph Hematologic/Lymphatic: Denies easy bleeding, Denies easy bruising and Denies lymphadenopathy Exam Const General: cooperative, healthy appearing, comfortable, no acute distress, well developed and well groomed Orientation: alert [facility] Head: normal to inspection and normocephalic Ears: hearing grossly normal bilaterally and external ears normal Nose: external nose normal Face and sinus: normal facial exam Neck Neck: normal visual inspection, full ROM and no lymphadenopathy Thyroid: thyroid normal Chest Chest palpation & inspection: normal inspection of the chest Resp Effort & Inspection: normal respiratory effort Auscultation: clear to auscultation bilaterally Cardio Rate: regular rate Rhythm: regular rhythm Heart Sounds: S1 normal and S2 normal GI Inspection: normal to inspection and non-distended Palpation: soft, no hepatosplenomegaly and no guarding General: bladder normal to palpation External Female Exam: normal external appearance, normal appearance of the urethra and no lesions Urethra: normal appearance of the urethra and normal palpation Speculum Exam - Vagina: normal appearance of the vagina and normal vaginal discharge Speculum Exam - Cervix: normal appearance of the cervix, no cervical discharge, no lesions and nontender Bimanual Exam- Vagina & Uterus: normal bimanual exam, bladder normal to palpation, No tender, uterine mobility normal, consistency abnormal, no cervical motion tenderness, enlarged (12-14 week size multiple fibroids), nodular and tender Bimanual Exam- Adnexa, other: normal adnexae, no masses, normal and non-tender Pelvic Support: normal Musc Other: gross motor intact no deficits, full bilateral strength Skin General: no rashes or lesions noted Neuro General: patient alert, moves all extremities and no focal motor deficits Motor: muscle tone normal throughout Extrem General: normal to inspection and no pedal edema Psych Appearance: grossly normal Mental Status: mental status grossly normal Affect: normal affect Speech and Movement: speech and movement normal Attitude: cooperative Coding Level of Care Code Off vis,est,level 5 Diagnoses Metrorrhagia? N92.1 Uterine fibroid? D25.9 Assessment and Plan Assessment and Plan (1) Metrorrhagia: ?Status:?Acute ?Comment: irregular, has IUD and fibroids, US ordered. (2) Uterine fibroid: ?Status:?Acute ?Comment: 3 small fibroids, has IUD in. enlarged fibroids, iud string not seen.? discussed options plan [facility] Plan After discussing the patient's diagnosis and treatment plan options, patient wishes to proceed with surgical management.? I have discussed with the patient the risks, benefits, and alternatives of the procedure which include but are not limited to risks of anesthesia, bleeding, infection, possible damage to bowel, bladder, or surrounding vasculature which could lead to additional surgery to evaluate any complications.? Patient agrees to procedure and wishes to proceed.? ACOG/uptodate references given for additional information regarding procedure.? UPDATE- I have seen the patient and performed any clinically relevant updates to the history and physical exam. Lety Marcos MD
[2022-12-10] MEDS: dexAMETHasone 10 MG/ML Vial 8 MG IV (10:23)
[2022-12-10 10:33] LABS: Internal QC Validated? YES +Cl - CLEAR BKGD; Pregnancy, Urine Negative Negative
[2022-12-10] MEDS: Acetaminophen 500 MG Tablet 1000 MG PO ×2 (10:42→22:16)
[2022-12-10] MEDS: Phenazopyridine 95 MG Tablet 190 MG PO (10:42)
[2022-12-10] MEDS: Gabapentin 600 MG Tablet PO (10:42)
[2022-12-10] MEDS: Celecoxib 200 MG Capsule 400 MG PO (10:42)
[2022-12-10] MEDS: Lactated Ringers 1,000 ML 40 ML IV (10:43)
[2022-12-10] MEDS: Enoxaparin 40 MG/0.4 ML Syringe SC (10:44)
--- NOTE | 2022-12-10 10:57 | PCM.OPRPT ---
Problems Associated Problem List Diagnoses (1) Dysmenorrhea: (2) Climacteric: (3) Uterine fibroid: (4) Metrorrhagia: Report of Operation Date of Procedure: 12/10/22 Pre-Operative Diagnosis: AUB, fibroids Post-Operative Diagnosis: same Surgery/Procedure Performed:: LAVHrs and cystoscopy Description of Surgical Findings:: enlarged uterus with fibroids, previous csection x 1 absent left ovary and tube Surgeon: Lety Marcos Type of Anesthesia: General Specimen's removed: uterus, tubes Drains: wallace Fluids Replaced: crystalloid Description of Procedure: Patient received preoperative antibiotics and SCDs were on preoperatively. Patient was taken back to the operating room and placed in the dorsal lithotomy position. General anesthesia was induced and patient was prepped and draped in normal sterile fashion. Uterine manipulator was placed inside the uterus and Wallace catheter placed in the bladder. The umbilicus was grasped with towel clamps and an intraumbilical incision was made after injecting with quarter percent Marcaine and a Veress needle entered into the abdomen confirmed to be intra-abdominal with a low opening pressure. Abdomen was insufflated with CO2 gas and the Veress needle removed and the 5 mm trocar was placed under direct visualization without complication. Right and left lower quadrants were transilluminated and injected with quarter percent Marcaine and 5 mm ports placed under direct visualization. Pelvis was well visualized see operative findings for additional information. left ovary and tube absent, right ovary and tube was noted and the mesosalpinx grasped and elevated, ligasure used to transect across the tube to the level of the uterus and then transect the uteroovarian ligament. ovulatory cyst noted in the right ovary, clear and 2-3 cm in size. The broad ligament was opened up by transecting the round ligament bilaterally and skeletonizing the uterine vessels bilaterally and creating a bladder flap using the LigaSure device. The uterine arteries were transected bilaterally with good visualization of the bladder and the ureters were seen to be inferior lateral to the operative area. Attention was then paid to the vaginal portion of the procedure and the cervix was grasped with Omer clamps and circumferentially injected with dilute vasopressin. A circumferential incision was made and the vaginal mucosa was mobilized off posteriorly and the cul-de-sac entered into sharply and a longneck speculum placed. The anterior cul-de-sac was then identified and entered into sharply. The uterosacral ligaments were clamped cut and suture ligated with 0 Monocryl bilaterally followed by the cardinal ligaments which were clamped cut and suture ligated bilaterally with 0 Monocryl. The uterus serially descended and was removed without difficulty. Pelvic sidewall pedicles were checked and noted to have excellent hemostasis. The vaginal mucosa was reapproximated incorporating the posterior peritoneum. This was reapproximated using 0 Vicryl [id number] sutures. Excellent hemostasis was noted. The cystoscopy was then performed and bilateral ureteral strong spray was noted and the bladder was noted to have no abnormality or lesions seen. Wallace catheter was replaced and then attention paid to the abdominal portion of the procedure again. The pelvis and cul-de-sac were well visualized and no significant active bleeding noted but some raw areas were seen on the peritoneum and therefore floseal was applied. Pressure was taken down and the areas visualized and noted of excellent hemostasis. All ports were removed under direct visualization without complication and the abdomen was desufflated of air. The instruments were removed from the abdomen and the vaginal sweep was negative. Port sites on the abdomen were closed with 4-0 Monocryl interrupted sutures and Steri's and windows were applied. She was awoken and taken recovery in stable condition. Grafts/Implants Used: none Complications none Admit VTE Documentation VTE Present on Admission: No VTE Mechan Device Prophylaxis: SCD's VTE Pharm Prophylaxis ordered?: Yes Multi Select Codes Urinary/Genital Urinary/Genital CPT Codes: 59125 Cystoscopy and 56694 LAVH+BS/O <250gr Uterus
--- NOTE | 2022-12-10 10:58 | DCINST_ITS ---
Discharge Instructions Diet Discharge Diet: No restrictions Activity May resume sexual activity in: 6 weeks Weight Bearing Status: Full weight bearing Dressing / Incision Call your doctor if your incision/area has: Continuous Slow Oozing, Sudden Increased Bleeding, Increased Pain/ Swelling, Increased Redness and Foul Smelling Discharge Call your doctor if you observe: Fever of 101 or Higher, Using more than 1 pad per hour, Shortness of breath, Chest pain and Uncontrolled pain Suture Line Care: Avoid Pulling/Pushing and Avoid Pinching/Bending Remove Dressing in: 1 week (if present) Cleanse incision/area with: Soap & Water and Keep Dressing Clean & Dry Follow Up Care Please Follow Up With: Lety Marcos MD When: Call to make an appointment with your doctor for a postop visit in 2 and 6 weeks. Test Results: Test results from this visit will be discussed in further detail at your follow- up appointment, if applicable. Discharge Plan Admission Attending Provider: Lety Marcos Primary Care Provider: Care Physician,No Primary Consulting Providers: Kit Thorne Discharge Orders/Prescriptions Prescriptions: New oxycodone-acetaminophen [Percocet] 5-325 mg tablet 1 tab PO Q6H PRN (Reason: pain) 7 Days Qty: 20 0RF naproxen [naproxen] 500 mg tablet 500 mg PO BID PRN PRN (Reason: Pain) Qty: 30 1RF Continued spironolactone [Aldactone] 50 mg tablet 50 mg PO DAILY Mirena 20 mcg/24 hours (5 yrs) 52 mg intrauterine device 1 device intrauterine ONCE Rx Instructions: as a single dose apple cider vinegar 600 mg Capsule 600 mg PO DAILY spironolactone 50 mg Tablet 100 mg PO QHS bupropion HCl [Wellbutrin XL] 150 mg tablet extended release 24 hr 150 mg PO QAM Qty: 30 12RF Referrals / Follow Up: Care Physician,No Primary [Primary Care Provider] - Disposition Disposition (needs filled in before D/C Order can be placed): Home, Self Care
[2022-12-10 11:15] LABS: Bedside Glucose 91 mg/dL (74-106)
[2022-12-10] MEDS: Scopolamine 1mg/72hr Patch 1 PATCH TD (11:15)
[2022-12-10] MEDS: Cefazolin 2 GM in 0.9% Normal Saline 100 ML IV (11:23)
--- NOTE | 2022-12-10 11:40 | HYST_PTH ---
PATIENT: KRYSTAL MACKEY LOC: MS3 U#:[id number] AGE/SX: 42/F ROOM: MS315 RE12/10/[address]: Dr. Lety Macros MD : 1980 BED: 1 DIS: 12/12/2022 SPEC #: [id number] RECD: 12/10/22 15:33 STATUS: AUGUST LUJAN #: [id number] BASSAM: 12/10/22 11:[address]: Lety Marcos DEPT: SURGICAL PATHOLOGY RECD BY: Merline Sims ENTERED: 12/11/22 08:16 SP TYPE: HYSTERECT OTHR DR: Dr. Kit Thorne MD No Primary Care Phys Tissues: Uterus, NOS Procedures: Surgery Specimen Level V HEADER OPERATION: ERAS, hysterectomy, LAVH, right salpingectomy PRE-OP DIAGNOSIS: Metrorrhagia, uterine fibroid TISSUE SUBMITTED: Uterus, cervix, right fallopian tube MICROSCOPIC DIAGNOSIS Uterus, hysterectomy: Cervix ? squamous metaplasia and mild chronic inflammation. Endometrium ? weakly proliferative endometrium with focal benign stromal hyperplasia. Myometrium ? leiomyoma and adenomyosis. Right fallopian tube ? fibrovascular tissue. See comment. AM:keeley 12/12/2022 COMMENT The endometrial cavity contains a T- shaped intra uterine device that is intact and without migration outside the endometrial cavity. Attached tissue of right adnexa resembling fallopian tube is totally submitted and reveals fibrovascular tissue. A distinct fallopian tube is not identified. Clinical correlation is suggested. MICROSCOPIC DESCRIPTION Slides are reviewed. GROSS DESCRIPTION Received in fixative is one container labeled with the patient's name and designated uterus, cervix and right fallopian tube. The specimen consists of a hysterectomy specimen consisting of uterus with cervix and attached portion of right fallopian tube. The uterus with cervix weighs 116 gm and measures 11 x 6 x 4.5 cm. The serosal surface is feldman, glistening. The ectocervical mucosa is unremarkable. The external os is slit-like in contour. The endocervical canal measures 3.5 cm in length and the endocervical mucosa is feldman, glistening and unremarkable. The triangular endometrial cavity measures 4.5 cm in length and up to 2.5 cm in width. The endometrial cavity shows a well-positioned, white T-shaped intrauterine device. The vertical arm of the ?T? measures 2.5 cm in length and horizontal arm measures 3 cm in length. Two-prong suture is also present measuring 5.5 cm in length. The endometrium is feldman, glistening without any mass lesion and measures 0.2 cm in thickness. Sections of the uterine wall reveal one nodular mass measuring 2 cm in greatest dimension. Sections of this mass reveals feldman whorled cut surfaces without areas of hemorrhage, necrosis or cystic degeneration. The uterine wall measures up to 2.5 cm in thickness. The portion of right fallopian tube measures 3 cm in length and 0.5 cm in diameter. The fimbrial end is not identified. Sections reveal unremarkable cut surfaces. Outpatient Services Director sections are submitted in eight cassettes as follows: 1 - anterior cervix, 2 - posterior cervix, 3 & 4 - anterior uterine wall, 5 & 6 - posterior uterine wall, 7 - nodular mass, 8 - right fallopian, entirely submitted. / LUCIEN:keeley 12/11/2022 TC:1 CPT: 15418
[2022-12-10] MEDS: Vasopressin 20 UNITS/ML Vial (12:23)
[2022-12-10] MEDS: Ondansetron 4 MG/2 ML Vial IV (13:50)
[2022-12-10] MEDS: Ketorolac 30 MG/ML Syringe IV ×3 (15:10→20:00)
[2022-12-10] MEDS: Lactated Ringers 1,000 ML 70 ML IV (15:13)
[2022-12-10 16:20] LABS: Hematocrit 20.7 % (37-47); Hemoglobin 6.9 g/dL (12.0-15.0); Mean Corp Hgb Conc 33.3 g/dL (32-36); Mean Corpuscular Hgb 29.7 pg (27.0-32.0); Mean Corpuscular Volume 89.2 fL (81-99); Mean Platelet Vol. 9.9 fl (6.2-12.0); Platelet Count 170 K/mm3 (150-450); RBC Distribution Width CV 12.5 % (11.6-14.6); RBC Distribution Width SD 40.8 fl (35.1-43.9); Red Blood Count 2.32 M/mm3 (4.2-5.4); White Blood Count 8.9 K/mm3 (4.4-11.0)
--- NOTE | 2022-12-10 16:58 | PCM.PN.BLA ---
Progress Note Hg value returned at 6.9 and patients blood pressure is low, decision for surgical evaluation due to intrabdominal postop bleeding. patient consented for emergent mini laparotomy. 2 units ordered to transfuse now and 2 units and a unit of FFP ordered to be put on hold immediately.
--- NOTE | 2022-12-10 17:02 | OP.PCM_ITS ---
Problems Associated Problem List Diagnoses (1) S/P laparoscopic assisted vaginal hysterectomy (LAVH): (2) Uterine fibroid: (3) Post-op bleeding: (4) Anemia associated with acute blood loss: Report of Operation Date of Procedure: 12/10/22 Pre-Operative Diagnosis: anemia postop blood loss Post-Operative Diagnosis: abnormal lab values, no acute post op source of bleeding identified Surgery/Procedure Performed:: mini laparotomy Description of Surgical Findings:: 10cc of blood in pelvis, no postop source of bleeding identified, intact pelvic sutures, no retroperitoneal hematomas, no sidewall hematoma, no abdominal wall hematoma, incisions intact, no vaginal bleeding, bowel intact, omentum intact. Surgeon: Lety Marcos nut sheller machine operator: Ynes Turner Specimen's removed: none Drains: wallace Estimated Blood Loss (mL): 50 cc Fluids Replaced: 1 units PRBCs, hespan Description of Procedure: 3 hours postop a cbc was drawn and the HG noted to be 6 grams lower than the preop 5 days earlier, and patient was noted to be hypotensive and having lower abdominl bloating therefore the suspicion of significant internal bleeding was present and patient was consented for emergent mini laparotomy and immediate transfusion of blood products. Patient was taken to the operating room and placed under general anesthesia. Patient was prepped and draped in normal sterile fashion in the dorsal supine position. A mini laparotomy Pfannenstiel incision was made through her previous incision carried through to unknowingly the fascia with the scalpel fascia was nicked in the midline and the incision stretched laterally peritoneum entered digitally and Rony retractor placed. abdomen was explored, all pelvic sutures and cul de sac examined and only 10 cc of blood was seen and suctioned from the cul de sac. no acute bleeding from any pedicles were noted. all sutures were seen and intact. the bowel was run and intact. the omentum was examined and intact. the retroperitoneal space was evaluated and palpated and noted to be within normal limits and intact with no abnormalities. the abdominal wall, pelvic side owens, previous incisions were evaluated and noted to be WNL. at this time the suspicion of lab error was made and therefore an intraop hemoglobin was drawn. the unit of blood was just beginning to transfuse at the time of draw, and the patient was a difficult draw however it was able to be drawn on the arm she was receiving IVFs on, in a separate blood vessel from her IV. Hg returned at 8.6. decision was made to close patient and perform immediate CT to confirm no additional source of bleeding or injury as no acute source was able to be found at this time. the peritoneum was closed with 3-0 Monocryl and the fascia closed with 0 PDS strata fix. Subcutaneous tissue copiously irrigated and skin closed with 4-0 Monocryl. Procedures Urinary/Genital [id number]: Other Procedure See Report ([id number] exploratory mini laparotomy)
[2022-12-10 17:51] LABS: Hemoglobin 8.6 g/dL (12.0-15.0)
--- NOTE | 2022-12-10 18:02 | CT_ITS ---
INDICATION: RULE OUT BLEEDING/POST OPERATIVELY EXAMINATION: CT Abdomen And Pelvis W/ Contrast Injection TECHNIQUE: Helically acquired images were obtained of the abdomen and pelvis after IV contrast. A radiation dose optimization technique was used for this scan. IV Contrast dosage and agent: IV 100mL [id number] Oral contrast: None. COMPARISON: None. FINDINGS: Visualized lung bases: Bibasilar atelectasis. Liver: Unremarkable Gallbladder: Unremarkable Spleen: Unremarkable Pancreas: Unremarkable Adrenal Glands: Unremarkable Kidneys: Unremarkable Vasculature: Unremarkable GI Tract: Unremarkable Lymphadenopathy: None Peritoneum: Trace free fluid and free air in the pelvis compatible with postsurgical changes. Bladder: Hodge catheter in place. Reproductive organs: Status post hysterectomy. Bones/Soft tissues: Postsurgical changes of the lower anterior abdominal wall. CT/Abdomen/Pelvis W IV Cont ONLY IMPRESSION: No acute abnormalities in the abdomen or pelvis. Trace free fluid and free air in the pelvis compatible with postsurgical changes. Electronically Signed: Damon Strong MD at 19:54 EST ,
--- NOTE | 2022-12-10 19:33 | SUR.PHASEI ---
AT APPROXIMATELY 1842, TAKEN IN BED TO CT SCAN/RADIOLOGY.
--- NOTE | 2022-12-10 19:36 | SUR.PHASEI ---
AT APPROXIMATELY, 1910, RETURNED TO PACU FROM CT SCAN RADIOLOGY IN BED. BROUGHT TO BEDSIDE.
[2022-12-10] MEDS: Docusate Sodium 100 MG Capsule PO (22:16)
[2022-12-10 22:40] LABS: Absolute Lymphocyte Count 0.62 X10^3/uL (0.83-4.51); Absolute Neutrophil Count 16.3 X10^3/uL (2.0-7.7); Basophil# 0.02 X10^3/uL; Basophil% 0.1 % (0-1); Hematocrit 39.4 % (37-47); Lymphocyte # 0.62 X10^3/ul (0.83-4.51); Lymphocyte % 3.4 % (19-41); Mean Corpuscular Volume 87.8 fL (81-99); Mean Platelet Vol. 9.1 fl (6.2-12.0); Monocyte% 6.6 % (0-10); NRBC Flagged by Analyzer 0 % (0-5); Neutrophil # 16.29 X10^3/uL (2.7-7.7); Neutrophil % 89.6 % (47-70); Platelet Count 323 K/mm3 (150-450); RBC Distribution Width CV 12.7 % (11.6-14.6); RBC Distribution Width SD 40.2 fl (35.1-43.9); Red Blood Count 4.49 M/mm3 (4.2-5.4); White Blood Count 18.2 K/mm3 (4.4-11.0)
[2022-12-10 22:53] LABS: International Normalized Ratio 1.2; Prothrombin Time (Protime)PT. 14.5 SECONDS (11.7-14.9)
[2022-12-10 22:54] LABS: Fibrinogen 278 mg/dl (203-444); Partial Thromboplast Time 31.6 Seconds (24.1-36.2)
[2022-12-11] VITALS (8 sets, daily range): BP systolic 92–107; BP diastolic 54–62; PULSE 63–91; RESP 14–16; TEMP 36.7–37.1; O2SAT 95–97
[2022-12-11] MEDS: Acetaminophen 500 MG Tablet 1000 MG PO ×4 (02:40→22:32)
[2022-12-11] MEDS: Ketorolac 30 MG/ML Syringe IV ×4 (02:40→20:02)
[2022-12-11 06:47] LABS: Hematocrit 36.2 % (37-47); Mean Corp Hgb Conc 33.1 g/dL (32-36); Mean Corpuscular Hgb 29.1 pg (27.0-32.0); Mean Corpuscular Volume 87.9 fL (81-99); Mean Platelet Vol. 9.7 fl (6.2-12.0); Platelet Count 276 K/mm3 (150-450); RBC Distribution Width SD 41.9 fl (35.1-43.9); Red Blood Count 4.12 M/mm3 (4.2-5.4)
--- NOTE | 2022-12-11 07:45 | PN.OBGYN_ITS ---
Subjective Subjective Patient doing well without complaints just tired. Tolerating PO. Objective Data Objective Data Vital Signs: Vital Signs Temp Pulse Resp BP Pulse Ox O2 Del Method O2 Flow Rate 98.4 F 82 14 92/54 L 96 Room Air 4 12/11/22 02:36 12/11/22 02:36 12/11/22 02:36 12/11/22 02:36 12/11/22 02:36 12/11/22 02:36 12/10/22 15:45 Oxygen Flow Rate (L/min) 4 Oxygen Delivery Method Room Air Weight: 156 lb 8.451 oz Body Mass Index (BMI) 26.9 Intake & Output: Intake and Output for Last 24 Hours 12/09/22 12/10/22 12/11/22 23:59 23:59 23:59 Intake Total 2212 / 2212 1027.67 / 1027.67 Output Total 1925 / 1925 700 / 700 Balance 287 / 287 327.67 / 327.67 Lab / Micro Data Result Diagrams: 12/11/22 06:10 12/05/22 10:41 Labs: Laboratory Results - last 24 hr 12/10/22 10:15: Urine Test Negative 12/10/22 10:15: Blood Type A POSITIVE, Antibody Screen NEGATIVE 12/10/22 10:15: Crossmatch See Detail 12/10/22 10:34: POC Glucose 91 12/10/22 15:58: WBC 8.9, RBC 2.32 L, Hgb 6.9 L, Hct 20.7 L, MCV 89.2, MCH 29.7, MCHC 33.3, RDW Std Deviation 40.8, RDW Coeff of Cara 12.5, Plt Count 170, MPV 9.9 12/10/22 17:45: Hgb 8.6 L 12/10/22 22:27: WBC 18.2 H, RBC 4.49, Hgb 13.0, Hct 39.4, MCV 87.8, MCH 29.0, MCHC 33.0, RDW Std Deviation 40.2, RDW Coeff of Cara 12.7, Plt Count 323, MPV 9.1, Immature Gran % (Auto) 0.300, Neut % (Auto) 89.6 H, Lymph % (Auto) 3.4 L, Saunders % (Auto) 6.6, Eos % (Auto) 0.0, Baso % (Auto) 0.1, Absolute Neuts (auto) 16.3 H, Absolute Lymphs (auto) 0.62 L, Nucleated RBC % 0 12/10/22 22:27: PT 14.5, INR 1.2, APTT 31.6, Fibrinogen 278 12/11/22 06:10: WBC 14.0 H, RBC 4.12 L, Hgb 12.0, Hct 36.2 L, MCV 87.9, MCH 29.1, MCHC 33.1, RDW Std Deviation 41.9, RDW Coeff of Cara 13.0, Plt Count 276, MPV 9.7 Radiography Diagnostic Testing: Radiology Impression Abdomen/Pelvis CT 12/10/22 18:02 IMPRESSION: No acute abnormalities in the abdomen or pelvis. Trace free fluid and free air in the pelvis compatible with postsurgical changes. Electronically Signed: Damon Strong MD at 19:54 EST , ROS Constitutional Constitutional: Reports systems reviewed and no addt'l complaints, except as documented Cardiovascular Cardiovascular: Reports systems reviewed and no addt'l complaints, except as documented Respiratory/Chest Respiratory/Chest: Reports systems reviewed and no addt'l complaints, except as documented Gastrointestinal Gastrointestinal: Reports systems reviewed and no addt'l complaints, except as documented Physical Exam Const alert, oriented x3 and no apparent distress HEENT Head and Scalp: atraumatic Resp normal respiratory effort GI soft to palpation and non-tender Assessment & Plan (1) S/P laparoscopic assisted vaginal hysterectomy (LAVH): COMMENT: fibroids (2) S/P laparotomy: COMMENT: post hysterectomy due to suspected bleeding, no bleed seen. PLAN: Plan patient is s/p lavh and mini lap POD 1 1. routine ERAS protocol postop care- increase ambulation, encourage oral intake and oral control of pain. lovenox and scds for dvt prophylaxis, patient stable for discharge to home this evening or tomorrow depending on criteria.
[2022-12-11] MEDS: Lactated Ringers 1,000 ML 999 ML IV (09:10)
[2022-12-11] MEDS: buPROPion (XL) 150 MG TABLET.XL PO (09:12)
[2022-12-11] MEDS: Enoxaparin 40 MG/0.4 ML Syringe SC (09:12)
[2022-12-11] MEDS: Docusate Sodium 100 MG Capsule PO ×2 (09:12→20:03)
[2022-12-11] MEDS: 0.9% Saline Lock 10 ML Syringe IV ×2 (14:38→20:02)
[2022-12-11] MEDS: Ondansetron ODT 4 MG Tablet PO (22:32)
[2022-12-12] MEDS: Acetaminophen 500 MG Tablet 1000 MG PO ×2 (02:22→08:26)
[2022-12-12] MEDS: 0.9% Saline Lock 10 ML Syringe IV (02:22)
[2022-12-12] MEDS: Ketorolac 30 MG/ML Syringe IV (02:22)
[2022-12-12 02:24] VITALS: BP 108/69; PULSE 64; RESP 16; TEMP 36.8; O2SAT 96
[2022-12-12 08:18] VITALS: BP 98/60; PULSE 62; RESP 18; TEMP 36.6; O2SAT 93
[2022-12-12 08:20] VITALS: O2SAT 94
[2022-12-12] MEDS: Docusate Sodium 100 MG Capsule PO (08:26)
[2022-12-12] MEDS: buPROPion (XL) 150 MG TABLET.XL PO (08:27)
[2022-12-12] MEDS: Enoxaparin 40 MG/0.4 ML Syringe SC (08:27)
--- NOTE | 2022-12-12 11:02 | PCM.PN.OB ---
Subjective Subjective Patient doing well without complaints. Tolerating PO. Ambulating without difficulty. Denies chest pain, shortness of breath, calf pain/swelling, fevers, chills, lightheadedness. Objective Data Objective Data Vital Signs: Vital Signs Temp Pulse Resp BP Pulse Ox O2 Del Method O2 Flow Rate 97.9 F 62 18 98/60 94 Room Air 4 12/12/22 08:18 12/12/22 08:18 12/12/22 08:18 12/12/22 08:18 12/12/22 08:20 12/12/22 08:20 12/10/22 15:45 Oxygen Flow Rate (L/min) 4 Oxygen Delivery Method Room Air Weight: 156 lb 8.451 oz Body Mass Index (BMI) 26.9 Intake & Output: Intake and Output for Last 24 Hours 12/10/22 12/11/22 12/12/22 23:59 23:59 23:59 Intake Total 2212 / 2212 2876.67 / 2876.67 500 / 500 Output Total 1925 / 1925 700 / 700 Balance 287 / 287 2176.67 / 2176.67 500 / 500 Lab / Micro Data Result Diagrams: 12/11/22 06:10 12/05/22 10:41 Labs: Laboratory Results - last 24 hr 12/10/22 10:15: Crossmatch See Detail ROS Constitutional Constitutional: Reports systems reviewed and no addt'l complaints, except as documented Cardiovascular Cardiovascular: Reports systems reviewed and no addt'l complaints, except as documented Respiratory/Chest Respiratory/Chest: Reports systems reviewed and no addt'l complaints, except as documented Gastrointestinal Gastrointestinal: Reports systems reviewed and no addt'l complaints, except as documented Physical Exam Const alert, oriented x3 and no apparent distress HEENT Head and Scalp: atraumatic Resp normal respiratory effort GI soft to palpation and non-tender Assessment & Plan (1) S/P laparoscopic assisted vaginal hysterectomy (LAVH): COMMENT: fibroids (2) S/P laparotomy: COMMENT: post hysterectomy due to suspected bleeding, no bleed seen. PLAN: Plan patient is s/p lavh and mini lap POD 2 1. routine ERAS protocol postop care- increase ambulation, encourage oral intake and oral control of pain. lovenox and scds for dvt prophylaxis, patient stable for discharge to home today
--- NOTE | 2022-12-12 11:03 | PCM.DC.SUM ---
Providers Date of Admission: 12/10/22 Primary Care Physician: No Primary Care Phys Reason For Visit: LAVH Diagnosis Discharge Diagnosis (1) S/P laparoscopic assisted vaginal hysterectomy (LAVH): Status: Acute Code(s): Z90.710 - Acquired absence of both cervix and uterus (2) S/P laparotomy: Status: Acute Code(s): Z98.890 - Other specified postprocedural states Medications at Discharge Home Medications spironolactone 50 mg tablet (Aldactone) 50 mg PO DAILY 04/04/20 levonorgestrel 21 mcg/24 hours (8 yrs) 52 mg intrauterine device (Mirena) 1 device intrauterine ONCE 07/10/20 bupropion HCl 150 mg 24 hr tablet, extended release (Wellbutrin XL) 150 mg PO QAM #30 tabs 10/14/22 apple cider vinegar 600 mg capsule 600 mg PO DAILY 12/04/22 spironolactone 50 mg tablet 100 mg PO QHS 12/04/22 naproxen 500 mg tablet 500 mg PO BID PRN PRN Pain #30 tabs 12/10/22 oxycodone-acetaminophen 5 mg-325 mg tablet (Percocet) 1 tab PO Q6H PRN pain 7 days #20 tabs 12/10/22 Hospital Course Operations hysterectomy LAVH and - (exploratory mini laparotomy) Summary of Care Provided Hospital Course: Patient presented for LAVH secondary to fibroids and abnormal uterine bleeding. Patient underwent LAVH RS and 3 hours postop hemoglobin was found to be 6.9 and patient was having hypotension and lower abdominal pain and bloating therefore the decision was made to take her back for an emergency mini laparotomy due to suspicion of intra-abdominal bleeding postoperatively. Upon surgical evaluation there is no blood present in the abdomen and all vascular pedicles were noted to be intact and within normal limits. The retroperitoneal space bowel and omentum were explored intraoperatively and no hematomas or sources of anemia were noted. Patient had an intraoperative hemoglobin drawn that showed 8.6 and at that time it was suspected to be a lab error compounded by intravascular depletion and dilution from the IV fluids. Transfusion had already just begun with a unit of blood products prior to the second hemoglobin returning therefore the rest of the blood was transfused since it was mid transfusion. CT of the abdomen and pelvis was performed to rule out any other identifiable causes of anemia and it was within normal limits with no acute findings. Postoperatively patient had a routine recovery and a hemoglobin of 13 and then 12 further validating that the hemoglobin that was drawn postoperatively was inaccurate. Patient remained stable and on postop day 2 she was eating drinking peeing and had her pain controlled with oral medications and was stable for discharge to home Weight / BMI Weight Weight: 156 lb 8.451 oz Body Mass Index (BMI) 26.9 ABG / Lab / Microbiology Data Result Diagrams: 12/11/22 06:10 12/05/22 10:41 Laboratory: Laboratory Results - last 24 hr 12/10/22 10:15: Crossmatch See Detail D/C Instructions Discharge Diet: No restrictions Discharge Activity: May Not Drive (for 2 weeks or while taking narcotic pain medications.), May Shower and May Take a Tub Bath (in 7 days) May shower in (days): 0 May resume sexual activity in: 6 weeks Weight Bearing Status: Full weight bearing Call your doctor if your incision/area has: Continuous Slow Oozing, Sudden Increased Bleeding, Increased Pain/ Swelling, Increased Redness and Foul Smelling Discharge Call your doctor if you observe: Fever of 101 or Higher, Using more than 1 pad per hour, Shortness of breath, Chest pain and Uncontrolled pain Suture Line Care: Avoid Pulling/Pushing and Avoid Pinching/Bending Cleanse incision/area with: Soap & Water and Keep Dressing Clean & Dry Please Follow Up With: Lety Marcos MD When: Call to make an appointment with your doctor for a postop visit in 2 and 6 weeks. Meaningful Use Info Meaningful Use Diagnoses (Choose all that apply): None applicable Discharge Plan Admission Admit Date/Time: 12/10/22 17:11 Attending Provider: Lety Marcos Primary Care Provider: Care Physician,No Primary Consulting Providers: Kit Thorne Discharge Orders/Prescriptions Prescriptions: New oxycodone-acetaminophen [Percocet] 5-325 mg tablet 1 tab PO Q6H PRN (Reason: pain) 7 Days Qty: 20 0RF naproxen [naproxen] 500 mg tablet 500 mg PO BID PRN PRN (Reason: Pain) Qty: 30 1RF Continued spironolactone [Aldactone] 50 mg tablet 50 mg PO DAILY Mirena 20 mcg/24 hours (5 yrs) 52 mg intrauterine device 1 device intrauterine ONCE Rx Instructions: as a single dose apple cider vinegar 600 mg Capsule 600 mg PO DAILY spironolactone 50 mg Tablet 100 mg PO QHS bupropion HCl [Wellbutrin XL] 150 mg tablet extended release 24 hr 150 mg PO QAM Qty: 30 12RF Referrals / Follow Up: Care Physician,No Primary [Primary Care Provider] - Disposition Disposition (needs filled in before D/C Order can be placed): Home, Self Care
--- NOTE | 2022-12-12 14:47 | PHA.DC.MC ---
Pharmacy Service has performed discharge medication reconciliation and counseling for this patient. The patient was counseled on the following discharge medications and changes in medications for homegoing were reviewed. 1. PERCOCET 2. NAPROXEN The Reason for Use, instructions for use, and potential side effects were reviewed for all new medications. The patient's questions regarding all of their medications were answered. The patient was able to verbally demonstrate an understanding of their discharge medications. Home Medications spironolactone 50 mg tablet (Aldactone) 50 mg PO DAILY 04/04/20 levonorgestrel 21 mcg/24 hours (8 yrs) 52 mg intrauterine device (Mirena) 1 device intrauterine ONCE 07/10/20 bupropion HCl 150 mg 24 hr tablet, extended release (Wellbutrin XL) 150 mg PO QAM #30 tabs 10/14/22 apple cider vinegar 600 mg capsule 600 mg PO DAILY 12/04/22 spironolactone 50 mg tablet 100 mg PO QHS 12/04/22 naproxen 500 mg tablet 500 mg PO BID PRN PRN Pain #30 tabs 12/10/22 oxycodone-acetaminophen 5 mg-325 mg tablet (Percocet) 1 tab PO Q6H PRN pain 7 days #20 tabs 12/10/22 The patient's discharge medication list was reviewed for discrepancies and discrepancies were resolved.
== END 2022-12-12 12:15 | disposition home or self-care (01) ==
LOC: SDC 12-11 08:40 → MS3 12-11 08:40
PROVIDERS: Anesthesiology; Admitting Provider Obstetrics & Gynecology; Referring Provider Obstetrics & Gynecology; Visit Provider Obstetrics & Gynecology
PROC: 0UT9FZZ Resection of Uterus, Via Natural or Artificial Opening With Percutaneous Endoscopic Assistance (ICD-10-PCS; CPT 58552; principal; 2022-12-10 11:15)
PROC: (CPT 49000; principal; 2022-12-10 17:00)
DX: D25.9 Leiomyoma of uterus, unspecified (principal); N94.6 Dysmenorrhea, unspecified; I95.9 Hypotension, unspecified; N92.1 Excessive and frequent menstruation with irregular cycle; N83.201 Unspecified ovarian cyst, right side; Z79.899 Other long term (current) drug therapy; N95.1 Menopausal and female climacteric states; N99.820 Postprocedural hemorrhage of a genitourinary system organ or structure following a genitourinary system procedure; Y83.6 Removal of other organ (partial) (total) as the cause of abnormal reaction of the patient, or of later complication, without mention of misadventure at the time of the procedure; Y92.234 Operating room of hospital as the place of occurrence of the external cause; D62 Acute posthemorrhagic anemia; Z97.5 Presence of (intrauterine) contraceptive device
CPT/HCPCS: 58552; 00840; 49000; J7120 ×2; 36415; 36430; 74177; 80048; 81025; 82962; 83735; 85018; 85025; 85027; 85384; 85610; 85730; 86850; 86900; 86901; 86920; 88307; 93005; 96361; 96372; 96374; 96376; 99221; P9016; Q9967; A4216; G0378; J2405; J3475

== ENCOUNTER → 2023-11-24 | Outpatient (CLI) | payer MEDICAID, SELFPAY ==
--- NOTE | 2023-11-24 09:05 | BI_ITS ---
MAMMOGRAPHY - BILATERAL SCREENING REASON FOR EXAM: Female, 43 years old. Routine annual screening examination. PERTINENT HISTORY: Non-contributory. TECHNIQUE: Digital bilateral breast samir (3D mammographic acquisition) in the CC and MLO projections. 2-D mediolateral oblique (MLO) and craniocaudad (CC) views of both breasts were obtained. CAD: Full Field Digital Mammography with Computer Added Detection was performed. COMPARISON: Comparison is made with prior study dated November 21, 2022 and September 26, 2021. FINDINGS: Breast Composition: The breasts are extremely dense, which lowers the sensitivity of mammography. There are no dominant masses or suspicious calcifications. No other significant abnormalities are identified. There has been no significant change since the prior study. BI/SCRN MAMM (CAD)W/SAMIR BILAT IMPRESSION: Stable bilateral screening mammogram. Yearly follow-up mammogram recommended. (A) ASSESSMENT CATEGORY: BIRADS Category 1: Negative. A letter regarding these results will be sent to the patient by the facility within 30 days. Approximately 10% of breast cancers are not detected by mammography. A normal mammogram should not delay biopsy of a clinically suspicious abnormality. [id number] Electronically Signed: Ken Goodman MD at 8:48 EST ,
--- OUTSIDE RECORDS SUMMARY | 2023-11-24 09:29 | XMS RPT_ITS | CCD ---
Author Name Unknown Address [address] [place] [address] Organization [facility] Problems Active Problems Problem Classification Problem Date Documented Da te Episodic/Chronic Anxiety disorders (1 source) Panic disorder [episodic paroxysmal anxiety]; Translations: [Panic disorder (episodic paroxysmal anxiety) without agoraphobia] Onset: 05-02-2017 Chronic Past or Other Problems Problem Classification Problem Date Documented Da te Episodic/Chronic Other upper respiratory infections (1 source) Acute pharyngitis, unspecified; Translations: [Acute pharyngitis, unspecified] Onset: 05-02-2017 Episodic Results Test Name Value Interpretation Reference Range Facil ity Encounters Encounter Date Encounter Type Care Provider Facility Start: 05-02-2017 End: 05-03-2017 Emergency department patient visit [facility] Progress note 04-17-2021 Note Date & Type Note Facility 04-17-2021 Note HNO ID: [id number] Author: Susie Fuller MD Service: ? Author Type: Physician Type: Progress Notes Filed: 04/17/2021 9:36 AM Note Text: FOLLOW UP VISIT - APPENDICITIS NAME: Krystal Miranda CLINIC NO.: [id number] DATE OF SERVICE: 04/17/2021 : 1980 REFERRING PHYSICIAN: Lety Marcos MD Krystal is a patient I am following for acute appendicitis. I performed a laparoscopic appendectomy on 04/07/2021 at [facility]. Pathology report from [facility] - acute appendicitis and periappendicitis The patient denies fevers. Has some abdominal discomfort but improving over time. VITALS: Temp 98.4F On examination, the abdomen is benign. The incisions are healing well without signs of infection or inflammation. There is no right lower quadrant tenderness. Assessment IMPRESSION: status post laparoscopic appendectomy for acute appendicitis PLAN: If the patient notes any problems or signs of wound infections, the patient should contact me immediately. Work excuse written for off duty until May 01. She may return to her regular activities as tolerated. Diagnoses: No diagnosis found. Return to Clinic: The patient is instructed to follow-up with me as per needed. Susie Fuller MD [facility] Summary Purpose Family History No Family History Records FoundNo Family History Records Found Advance Directives No Advanced Directives Records FoundNo Advanced Directives Records Found Additional Source Comments INFORMATION SOURCE (unrecogn ized section and content) DATE CREATED AUTHOR AUTHOR'S ORGANIZ ATION 12/13/2021 [facility] FOR RECORDS PERTAINING TO PATIENTS WHO ARE OR HAVE BEEN ENROLLED IN A CHEMICAL DEPENDENCY/SUBSTANCEABUSE PROGRAM, SOME INFORMATION MAY BE OMITTED. This clinical summary was aggregated from multiple sources. Caution should be exercised in using it in the provision of clinical care. This summary normalizes information from multiple sources, and as a consequence, information in this document may materially change the coding, format and clinical context of patient data. In addition, data may be omitted in some cases. CLINICAL DECISIONS SHOULD BE BASED ON THE PRIMARY CLINICAL RECORDS. [employer] [facility]. provides no warranty or guarantee of the accuracy or completeness of information in this document.
== END | disposition home or self-care (01) ==
LOC: OPBI 09:05
PROVIDERS: Referring Provider Obstetrics & Gynecology; Visit Provider Obstetrics & Gynecology
DX: Z12.31 Encounter for screening mammogram for malignant neoplasm of breast (principal)
CPT/HCPCS: 77063; 77067

== ENCOUNTER 2024-02-08 09:20 | Emergency (ER) | payer MEDICAID, SELFPAY ==
[2024-02-08 09:20] VITALS: BP 110/88; PULSE 70; RESP 18; TEMP 36.3; O2SAT 97; BMI 26.9
--- NOTE | 2024-02-08 09:50 | ED.RN ---
PT REPORTS THAT SHE HAS HAD NAUSEA AND VOMITING X 3 DAYS. PT STATES THE EPIGASTRIC PAIN COMES AND GOES AND THAT SHE WAS BROUGHT IN BY FAMILY. PT REPORTS THAT SHE HAS NOT EATEN IN A COUPLE DAYS BECAUSE SHE HAD THE FLU.
--- NOTE | 2024-02-08 10:00 | EX.ED.VIS.UR ---
HPI HPI - URI History of Present Illness Chief Complaint: Chest Pain Informant: patient and spouse/S.O. Narrative Narrative: 43-year-old fairly healthy female has been sick for the past 6-7 days with cold/bronchitis symptoms, now for the last couple days she has had been-like upper abdominal pain episodes associated with nausea and some dry heaving on occasion. Has been worse after eating pizza but not necessarily routinely after meals although she admits she has not been eating a lot because she had been feeling poorly. Her daughter was diagnosed with pneumonia 2 weeks ago and she is concerned maybe she has caught it. She denies any dyspnea or chest discomfort or pleuritic pains. Patient did not have influenza vaccine this season. ROS ROS ED Constitutional Constitutional ED: Reports body ache(s) and malaise; Denies chills or fever(s) Eyes Eyes: Denies change in vision or diplopia ENT ENT ED: Reports headache(s), hoarseness, nasal congestion, rhinorrhea and other Details: Intermittent globus sensation and throat for over a year ; Denies ear pain or sore throat Cardiovascular Cardiovascular: Denies chest pain or palpitations Respiratory/Chest Respiratory/Chest: Reports cough and hemoptysis; Denies dyspnea Gastrointestinal Gastrointestinal: Reports abdominal pain, nausea and vomiting; Denies diarrhea Genitourinary Genitourinary ED: Denies dysuria or hematuria Musculoskeletal Musculoskeletal: Denies back pain or neck pain Integumentary Denies abscess or rash Neurologic Neurologic: Reports headache(s); Denies paresthesias or weakness Psychiatric Psychiatric: Denies anxiety or suicidal thoughts [facility] Medical History Alcohol use Back pain Cancer Chest pain History of edema History of irregular heartbeat Low iron Non-smoker Syncope Wears glasses Home Medications spironolactone 50 mg tablet (Aldactone) 50 mg PO DAILY 04/04/20 [History Last Taken 04/06/21] spironolactone 50 mg tablet 100 mg PO QHS 12/04/22 [History Last Taken Unknown] naproxen 500 mg tablet 500 mg PO BID PRN PRN Pain #30 tabs 12/10/22 [Rx Last Taken Unknown] bupropion HCl 300 mg 24 hr tablet, extended release 300 mg PO QAM #30 tabs 10/08/23 [Rx Last Taken Unknown] ondansetron HCl 8 mg tablet 8 mg PO Q8H PRN nausea and vomiting #12 tabs 02/08/24 [Rx Last Taken Unknown] pantoprazole 40 mg tablet,delayed release 40 mg PO DAILY #30 tabs 02/08/24 [Rx Last Taken Unknown] Allergy/AdvReac Type Severity Reaction Status Date / Time No Known Allergies Allergy Verified 02/08/24 09:21 Family History Father Cancer Grandmother Heart disease Surgical History H/O LEEP History of appendectomy Ovarian tumor Previous section S/P laparoscopic assisted vaginal hysterectomy (LAVH) (~12/10/22) [place] teeth extracted Social History number of children: 1 current occupational status: employed current occupation: [employer] Smoking Status: Never smoker alcohol intake: current alcohol intake frequency: holidays/special occasions only substance use type: does not use diet: low carbohydrate caffeine: Yes Type: carbonated beverages Number of servings: 1 and coffee Number of servings: 3 seatbelt use: always do you feel safe at home: Yes additional social history: works for a [employer]. EXAM Physical Exam Const Vital Signs: 02/08/24 09:20 02/08/24 09:50 02/08/24 11:20 Temperature 97.3 F L Temperature Source Temporal Pulse Rate 70 87 Respiratory Rate 18 18 Respiratory Effort Normal Non-Labored Blood Pressure 110/88 H 104/76 Blood Pressure Mean 95 85 Pulse Ox 97 96 Oxygen Delivery Method Room Air Room Air 02/08/24 15:19 Temperature Temperature Source Pulse Rate 68 Respiratory Rate 17 Respiratory Effort Blood Pressure 103/75 Blood Pressure Mean 84 Pulse Ox 97 Oxygen Delivery Method Room Air Positive well nourished and well developed General Appearance ED: well developed and NAD HEENT Reports moist mucous membranes HEENT Narrative: Mild hoarseness without stridor or dyspnea. Mild posterior oropharyngeal cobblestoning without tonsillar asymmetry, edema, exudates. No trismus. Normal tongue. normocephalic and atraumatic Face and Sinus: Negative for sinus tenderness Eyes PERRL and EOMs intact bilaterally Neck full ROM, no lymphadenopathy, supple, no meningeal signs and no JVD Resp normal respiratory effort and clear to auscultation bilaterally Cardio regular rate, regular rhythm and no murmurs GI non-distended GI Narrative: Uncomfortable with palpation throughout upper abdomen. Negative Adams. No significant abdominal tenderness or distention. Auscultation: normoactive bowel sounds Palpation: soft Back/Spine no CVA tenderness General Back: other FROM Extremity normal to inspection General Extremety ED: Negative for edema, pulses abnormal or tenderness General Extremity: Negative for edema or pulses abnormal Neuro oriented x3, CN's II-XII intact bilaterally and no sensory deficits noted Sensorium / Orientation: awake and alert Motor Exam: strength 5/5 throughout Psych mental status grossly normal Skin no rashes or lesions noted and no wounds MDM MDM MDM Narrative Medical decision making narrative: Lungs are clear and she is not hypoxic but differential still includes an early basilar pneumonia that may be causing the symptoms so x-ray indicated in addition to labs because some of this could be biliary in nature as well. Also in the differential, which has been very prevalent in the area recently, is simply a viral syndrome, including influenza. COVID/influenza/RSV swab sent, not surprisingly it is positive for influenza A. Patient is beyond the indication for Tamiflu and has no sign of influenza pneumonia, the two-view chest x-ray is normal in my interpretation, radiology is in agreement. However, her liver enzymes are elevated, total bilirubin is within normal limits as is lipase, arguing against biliary obstruction. Given this and her symptoms concerning for biliary colic, I did a bedside ultrasound of the gallbladder. There is a large gallstone. She states the pain has been coming and going but declines analgesics and although has some mild discomfort is not moderate-severely tender. Official ultrasound then ordered/obtained. I reviewed the images and the result which I agree with, basically it shows no signs of acute cholecystitis, but there is a mobile gallstone present. I discussed with surgery Dr. Leon, who states that the lack of inflammation on the ultrasound does not explain her elevated LFTs and recommends a CT which we then did, I reviewed those images and result and agree with it as well, it shows no radiographic signs of acute cholecystitis on the CT, in addition shows some focal antral wall thickening in the stomach. She is not vomiting blood to suggest an ulcer. She is doing well clinically every time I check on her here in the ER. She declined analgesics again. Surgery recommends close a patient follow-up within the next 2 days to recheck LFTs and discuss all of this further but we all are in agreement that she does not need emergency surgery or EGD right now, and since she has influenza, it would be in her and staff's best interest to perform any procedures electively after her illness is better as long as it is safe which at this point it seems to be. We will prescribe her a PPI in case this is some early gastritis as well as some Zofran to use as needed. She will follow-up closely. Lab Data Attestation: I reviewed the patient's lab results. Labs: Laboratory Results - last 24 hr 02/08/24 09:48 WBC 3.8 L RBC 4.67 Hgb 13.1 Hct 40.1 MCV 85.9 MCH 28.1 MCHC 32.7 RDW Std Deviation 39.3 RDW Coeff of Cara 12.6 Plt Count 224 MPV 9.5 Immature Gran % (Auto) 0.300 Neut % (Auto) 51.0 Lymph % (Auto) 34.7 [place] % (Auto) 12.7 H Eos % (Auto) 0.5 Baso % (Auto) 0.8 Absolute Neuts (auto) 1.9 L Absolute Lymphs (auto) 1.31 Nucleated RBC % 0 Sodium 140 Potassium 3.7 Chloride 105 Carbon Dioxide 29.0 Anion Gap 6 BUN 9 Creatinine 0.76 Estim Creat Clear Calc 91.34 Est GFR (MDRD) Af Amer 106 Est GFR (MDRD) Non-Af 88 BUN/Creatinine Ratio 11.8 Glucose 105 Calcium 8.6 Total Bilirubin 0.40 AST 134 H ALT 269 H Alkaline Phosphatase 125 H Total Protein 6.9 Albumin 3.6 Globulin 3.3 Albumin/Globulin Ratio 1.1 Lipase 25 Radiography Diagnostic Testing: Clinical Impression(s) from Imaging Studies Chest X-Ray 02/08/24 10:22 IMPRESSION: No radiographic evidence of acute cardiopulmonary disease. Electronically Signed: Sanju Bender MD at 10:32 EDT , Gallbladder Ultrasound 02/08/24 11:29 IMPRESSION: 1. Solitary gallstone but negative sonographic Adams''s sign and no pericholecystic fluid. 2. Mild hepatic steatosis. 3. No acute abnormality in the abdomen. Electronically Signed: Sanju Bender MD at 14:00 EDT , Abdomen/Pelvis CT 02/08/24 14:13 IMPRESSION: 1. Mild intramural thickening/edema of the gastric antral wall. This is a new finding. EGD will be helpful for further evaluation. 2. Interval clearing of postoperative pneumoperitoneum. 3. 1.9 x 1.6 cm right ovarian cyst. 4. Interval decrease in mild gallbladder dilatation. Electronically Signed: Sanju Bender MD at 15:17 EDT , Discharge Plan Triage Chief Complaint: Chest Pain ED Provider: Kash Gomez Dx/Rx/DC Orders Clinical Impression: Acute upper abdominal pain, Influenza A, Elevated liver enzymes, Cholelithiasis Instructions: Gallstones Dc, ED Diet, Low Fat, ED Influenza (Adult) Prescriptions: New pantoprazole 40 mg tablet,delayed release (DR/EC) 40 mg PO DAILY Qty: 30 0RF ondansetron HCl 8 mg tablet 8 mg PO Q8H PRN (Reason: nausea and vomiting) Qty: 12 0RF No Action spironolactone [Aldactone] 50 mg tablet 50 mg PO DAILY bupropion HCl 300 mg tablet extended release 24 hr 300 mg PO QAM Qty: 30 12RF spironolactone 50 mg Tablet 100 mg PO QHS naproxen [naproxen] 500 mg tablet 500 mg PO BID PRN PRN (Reason: Pain) Qty: 30 1RF Primary Care Provider: Care Physician,No Primary Referrals: Dodie Leon MD [Med Staff - Active Staff] - As soon as possible (to be seen within next 2-3 days) Disposition Disposition: Home, Self Care
[2024-02-08 10:19] LABS: Absolute Lymphocyte Count 1.31 X10^3/uL (0.83-4.51); Absolute Neutrophil Count 1.9 X10^3/uL (2.0-7.7); Basophil# 0.03 X10^3/uL; Basophil% 0.8 % (0-1); Eosinophil# 0.02 X10^3/uL; Eosinophils% 0.5 % (0-5); Hematocrit 40.1 % (37-47); Hemoglobin 13.1 g/dL (12.0-15.0); Lymphocyte # 1.31 X10^3/ul (0.83-4.51); Lymphocyte % 34.7 % (19-41); Mean Corp Hgb Conc 32.7 g/dL (32-36); Mean Corpuscular Hgb 28.1 pg (27.0-32.0); Mean Corpuscular Volume 85.9 fL (81-99); Mean Platelet Vol. 9.5 fl (6.2-12.0); Monocyte# 0.48 X10^3/uL; Monocyte% 12.7 % (0-10); NRBC Flagged by Analyzer 0 % (0-5); Neutrophil # 1.93 X10^3/uL (2.7-7.7); Platelet Count 224 K/mm3 (150-450); RBC Distribution Width CV 12.6 % (11.6-14.6); RBC Distribution Width SD 39.3 fl (35.1-43.9); Red Blood Count 4.67 M/mm3 (4.2-5.4); White Blood Count 3.8 K/mm3 (4.4-11.0)
--- NOTE | 2024-02-08 10:22 | RAD_ITS ---
EXAM: XR CHEST, 2 VIEWS CLINICAL INDICATION: cough, chest/epigastric pain TECHNIQUE: Frontal and lateral views of the chest. COMPARISON: No relevant prior studies available. FINDINGS: LUNGS AND PLEURAL SPACES: Unremarkable. No consolidation or edema. No pneumothorax. No effusion. HEART: Unremarkable. Cardiac silhouette not enlarged. MEDIASTINUM: Central airways and mediastinal contour are unremarkable. BONES/JOINTS: Unremarkable. No acute fracture. SOFT TISSUES: Unremarkable. RAD/Chest PA and Lateral IMPRESSION: No radiographic evidence of acute cardiopulmonary disease. Electronically Signed: Sanju Bender MD at 10:32 EDT ,
[2024-02-08 10:24] LABS: ALB/GLOB Ratio 1.1 RATIO (0.9-2.4); AST(SGOT) 134 U/L (15-37); Alanine Aminotransfer ALT/SGPT 269 U/L (13-56); Albumin, Serum 3.6 g/dL (3.2-5.0); Alkaline Phosphatase 125 U/L (45-117); Anion Gap 6 (5-15); BUN 9 mg/dL (7-18); BUN/Creat Ratio 11.8 RATIO (10-20); Calcium,Total 8.6 mg/dL (8.5-10.1); Chloride 105 mmol/L (98-107); Creatinine, Serum 0.76 mg/dL (0.55-1.02); EST Glomerular Filtration Rate 88 mL/min (>60); Est Glom Filt Rate - Afr Amer 106 mL/min (>60); Estimated Creatinine Clearance 91.34 ml/min; Globulin 3.3 g/dL (2.2-4.2); Glucose 105 mg/dL (74-106); Lipase 25 U/L (13-75); Potassium 3.7 mmol/L (3.5-5.1); Protein, Total 6.9 g/dL (6.4-8.2); Sodium Level 140 mmol/L (136-145)
[2024-02-08 11:20] VITALS: BP 104/76; PULSE 87; RESP 18; O2SAT 96
--- NOTE | 2024-02-08 11:29 | US_ITS ---
STUDY: ABDOMINAL ULTRASOUND - RIGHT UPPER QUADRANT REASON FOR VISIT: Female, 43 years old abdominal pain x6 days with nausea and vomiting. Elevated liver enzymes. TECHNIQUE: Ultrasound evaluation of the right upper quadrant was performed with real-time and static paul-scale imaging. TECHNICAL QUALITY: Adequate. COMPARISON: CT abdomen and pelvis with IV contrast 12/10/2022. FINDINGS: Liver: The liver measures 14.1 cm. Increased echogenicity of liver parenchyma due to fatty infiltration. The bile ducts are within normal limits. There is hepatic color flow. The direction of portal flow is hepatopetal. There is no demonstrated mass lesion. Gallbladder: Normal distended gallbladder. The gallbladder wall measures 2.9 mm. There is a negative sonographic Adams''s sign. There is no pericholecystic fluid. Small solitary gallstone. Common Bile Duct (C.B.D.): The common bile duct measures 5.2 mm. Pancreas: Normal size of the head, body and tail of the pancreas. There is normal echogenicity of the pancreas. There is no demonstrated pancreatic mass or cyst. The pancreatic duct is not dilated. Right Kidney: Normal size of the right kidney. The right kidney measures 10.2 x 4.5 x 4.1 cm. Normal renal cortex. The right cortex measures 1.2 cm. There is no demonstrated renal mass or cyst. There is no right hydronephrosis. US/Gallbladder IMPRESSION: 1. Solitary gallstone but negative sonographic Adams''s sign and no pericholecystic fluid. 2. Mild hepatic steatosis. 3. No acute abnormality in the abdomen. Electronically Signed: Sanju Bender MD at 14:00 EDT ,
--- NOTE | 2024-02-08 14:13 | CT_ITS ---
EXAM: CT ABDOMEN AND PELVIS WITH INTRAVENOUS CONTRAST CLINICAL INDICATION: Upper abdominal pain with nausea and vomiting. Elevated liver enzymes. TECHNIQUE: Helically acquired images were obtained of the abdomen and pelvis with intravenous contrast. This CT exam was performed using one or more of the following dose reduction techniques: automated exposure control, adjustment of the mA and/or kV according to patient size, and/or use of iterative reconstruction technique. CONTRAST: IV 100mL Isovue-370 RADIATION DOSE: CTDIvol = 13.57 mGy, DLP = 700.19 mGy-cm COMPARISON: CT abdomen and pelvis with IV contrast 12/10/2022. FINDINGS: LOWER THORAX: Unremarkable. Lung bases are clear. No cardiomegaly. No significant pericardial effusion. ABDOMEN: LIVER: Unremarkable. Homogeneous. No focal mass. GALLBLADDER AND BILE DUCTS: Unremarkable. No visible gallstones and no pericholecystic fluid. No intrahepatic or extrahepatic biliary ductal dilatation. PANCREAS: Unremarkable. No focal cystic or solid mass. SPLEEN: Unremarkable. Normal size without focal cystic or solid mass. ADRENALS: Unremarkable. No nodules. KIDNEYS AND URETERS: Unremarkable. Normal renal size and position. No hydronephrosis. STOMACH AND BOWEL: Mild intramural of thickening/edema of the gastric antral wall. Normal small bowel. Normal colon. PELVIS: APPENDIX: Postsurgical absence of the appendix. BLADDER: Unremarkable. REPRODUCTIVE: 1.9 x 1.6 cm right ovarian cyst. Postsurgical absence of the uterus. ABDOMEN and PELVIS: INTRAPERITONEAL SPACE: Clearing of pneumoperitoneum overlying the liver surface. No ascites or other fluid collection. BONES/JOINTS: Unremarkable. No suspicious lytic or blastic abnormality. SOFT TISSUES: No discrete abdominal or pelvic wall hernia. VASCULATURE: Unremarkable. Abdominal aorta is non-dilated. LYMPH NODES: Unremarkable. No enlarged lymph nodes. CT/Abdomen/Pelvis W IV Cont ONLY IMPRESSION: 1. Mild intramural thickening/edema of the gastric antral wall. This is a new finding. EGD will be helpful for further evaluation. 2. Interval clearing of postoperative pneumoperitoneum. 3. 1.9 x 1.6 cm right ovarian cyst. 4. Interval decrease in mild gallbladder dilatation. Electronically Signed: Sanju Bender MD at 15:17 EDT ,
[2024-02-08 15:19] VITALS: BP 103/75; PULSE 68; RESP 17; O2SAT 97
[2024-02-08 15:44] VITALS: BP 108/72; PULSE 76; RESP 21; TEMP 36.7; O2SAT 96
[2024-02-08] MEDS: Pantoprazole Sodium 40 MG Tablet PO (15:45)
== END 2024-02-08 15:51 | disposition home or self-care (01) ==
PROVIDERS: Emergency Provider Emergency Medicine; Visit Provider Emergency Medicine
DX: R10.10 Upper abdominal pain, unspecified (principal); K80.20 Calculus of gallbladder without cholecystitis without obstruction; J10.1 Influenza due to other identified influenza virus with other respiratory manifestations; R74.8 Abnormal levels of other serum enzymes
CPT/HCPCS: 71046; 74177; 76705; 80053; 83690; 85025; 87631; 99283; Q9967; A4216

== ENCOUNTER → 2024-02-10 | Outpatient (CLI) | payer MEDICAID, SELFPAY ==
[2024-02-10 15:54] LABS: AST(SGOT) 60 U/L (15-37); Alanine Aminotransfer ALT/SGPT 169 U/L (13-56); Albumin, Serum 3.9 g/dL (3.2-5.0); Alkaline Phosphatase 117 U/L (45-117); Globulin 3.1 g/dL (2.2-4.2)
== END | disposition home or self-care (01) ==
LOC: LAB 14:37
PROVIDERS: Referring Provider Surgery; Visit Provider Surgery
DX: K80.20 Calculus of gallbladder without cholecystitis without obstruction (principal); R74.8 Abnormal levels of other serum enzymes
CPT/HCPCS: 36415; 80076

== ENCOUNTER 2024-02-20 12:10 | Day surgery (SDC) | payer MEDICAID, SELFPAY ==
--- NOTE | 2024-02-20 | GASB_PTH ---
PATIENT: KRYSTAL MACKEY LOC: [facility] U#:[id number] AGE/SX: 43/F ROOM: RE02/20/[address]: Dr. Dodie Leon MD : 1980 BED: DIS: 02/20/2024 SPEC #: [id number] RECD: 02/20/24 14:53 STATUS: AUGUST RERey #: [id number] BASSAM: 02/20/24 00:[address]: Dodie Leon DEPT: SURGICAL PATHOLOGY RECD BY: Michele Hahn ENTERED: 02/23/24 10:17 SP TYPE: Gastric Bx OTHR DR: No Primary Care Phys Tissues: A - Gastric mucous membrane B - Esophageal mucous membrane Procedures: Special Stain Group II Surgery Specimen Level IV Alcian Blue/PAS (control) HEADER OPERATION: EGD with biopsy PRE-OP DIAGNOSIS: GERD TISSUE SUBMITTED: A- Ulcer antrum, B- Proximal esophagus MICROSCOPIC DIAGNOSIS A. Ulcer antrum, biopsy: Mild gastritis. See microscopic description and comment. B. Proximal esophagus, biopsy: Fragments of gastroesophageal mucosa with mild chronic inflammation. Intestinal metaplasia (goblet cell metaplasia) not identified. See comment. LUCIEN/ 02/24/24 COMMENT A. The results of immunohistochemistry for Helicobacter pylori will be reported separately ([id number]). B. Alcian blue/PAS stain with matched control is used in the evaluation of the specimen. Correlation with clinical, endoscopic findings and appropriate follow up are necessary. MICROSCOPIC DESCRIPTION Slides are reviewed. A. The specimen shows fragments of gastric mucosa with chronic inflammatory cell infiltrates in the lamina propria consisting of lymphocytes and plasma cells, consistent with mild chronic gastritis. Also mucosal congestion and hemorrhage are also noted. GROSS DESCRIPTION A. Received in fixative is one container labeled with the patient's name and designated Ulcer antrum. The specimen consists of one irregular fragment of light feldman soft tissue that measures 0.8 x 0.2 x 0.1 cm. The specimen is totally submitted in one cassette. B. Received in fixative is one container labeled with the patient's name and designated Proximal esophagus. The specimen consists of multiple irregular fragments of light feldman soft tissue that measure in aggregate 0.5 x 0.5 x 0.1 cm. The specimen is totally submitted in one cassette. AM/ 02/23/24 TC: CPT:[id number]
--- NOTE | 2024-02-20 12:32 | PCM.HP.BLA ---
History and Physical Date of Admission: 02/20/24 Date of Service: 02/10/24 MR#: [id number] Acct: [id number] Name: KRYSTAL MACKEY Rep #: [id number] : 1980 Provider: Dr. Dodie Leon MD Age/Sex: 43/F Location: [facility] Status: Signed Intake Vital Signs 02/07/2409:20 02/08/2409:58 02/09/2415:13 Height 5 ft 4 in 5 ft 4 in 5 ft 4 in Weight: 157 lb BMI 26.9 BP 121/77 H Blood Pressure Location Rt brachial Position Sitting Respiration 17 Pulse 78 Pulse Source Monitor Temp 97.3 F L Temp Source Temporal Pulse Oximetry (%) 100 Oxygen Delivery Method room air Intake Visit Reasons: GALLSTONES Chief Complaint: gallstones Is patient in pain?: Yes Allergies No Known Allergies Allergy (Verified 02/10/24 15:14) Medications spironolactone 50 mg tablet (Aldactone) 50 mg PO DAILY 04/04/20 [History Confirmed 02/10/24] spironolactone 50 mg tablet 100 mg PO QHS 12/04/22 [History Confirmed 02/10/24] naproxen 500 mg tablet 500 mg PO BID PRN PRN Pain #30 tabs 12/10/22 [Rx Confirmed 02/10/24] bupropion HCl 300 mg 24 hr tablet, extended release 300 mg PO QAM #30 tabs 10/08/23 [Rx Confirmed 02/10/24] ondansetron HCl 8 mg tablet 8 mg PO Q8H PRN nausea and vomiting #12 tabs 02/08/24 [Rx Confirmed 02/10/24] amino acid-hydrolyzed collagen-whey 15 gram-100 kcal/30 mL oral liquid ml PO 02/10/24 [History Confirmed 02/10/24] cholecalciferol (vitamin D3) 10 mcg/mL (400 unit/mL) oral drops 5 mcg PO DAILY 02/10/24 [History Confirmed 02/10/24] magnesium mal, threon, chelate mg PO 02/10/24 [History Confirmed 02/10/24] omeprazole 40 mg capsule,delayed release 40 mg PO QDAY #30 caps 02/10/24 [Rx Confirmed 02/10/24] sucralfate 1 gram tablet 1 g PO QACHS #56 tabs 02/10/24 [Rx Confirmed 02/10/24] PFSH Medical History Alcohol use Back pain Cancer Chest pain History of edema History of irregular heartbeat Low iron Non-smoker Syncope Wears glasses Surgical History H/O LEEP History of appendectomy Ovarian tumor Previous section S/P laparoscopic assisted vaginal hysterectomy (LAVH) (~12/10/22) [place] teeth extracted Family History (Updated 02/10/24 @ 15:13 by Gale Flynn) Father Cancer boneGrandmother Heart disease Social History number of children: 1 current occupational status: employed current occupation: [employer] Smoking Status: Never smoker alcohol intake: current alcohol intake frequency: holidays/special occasions only substance use type: does not use diet: low carbohydrate caffeine: Yes Type: carbonated beverages Number of servings: 1 and coffee Number of servings: 3 seatbelt use: always do you feel safe at home: Yes additional social history: works for a [employer]. Female Reproductive History Menstrual Ab induced: 2 HPI HPI HPI: 43-year-old female presents for follow-up from ER visit due to gallstones, elevated LFTs and positive H. influenzae a, abdominal pain. Patient states that last week she did have the flu is very lethargic does have some chronic fatigue issues patient had nausea and vomiting in the middle night as well as some epigastric just pain. Patient's daughter also had pneumonia at the same time. Patient states she has had stomach issues for probably about 2 years and she has had dysphagia occasionally or does not feel like things will go down occasionally maybe once every 6 months?patient admits to not going to the doctor very often and ignoring issues. Patient is currently not on PPI or any medication for this. Patient also has chronic constipation states she has a bowel movement about every week. Patient does drink states she drinks plenty of water but unsure about the exact amount of fiber she gets. In the ER patient had normal white blood cell count elevated AST ALT and alk phos normal total bilirubin patient did not require any pain medication, tested positive for influenza A, ultrasound showed solitary gallstone no gallbladder wall thickening no pericholecystic fluid normal common bile duct, CT report question some thickening of the gastric antrum otherwise no definitive findings. To do a recheck of the LFTs prior to appointment patient's LFTs did improve with the alk phos normalizing ROS General General: Yes fatigue; No weight change, appetite, colon cancer or breast cancer HEENT HEENT: Yes difficulty swallowing; No eye injury, eye surgery, swollen glands or hoarseness Endo Endocrine: No thyroid disease, diabetes mellitus, thyroid cancer, Hair loss, heat intolerance or cold intolerance Skin Skin: No rash or changing moles Musc Musculoskeletal: No back problems, arthritis, rheumatoid arthritis, gout or joint pain Cardio Cardiovascular: No murmur, pacemaker, heart disease, atrial fibrillation, high blood pressure, heart attack, heart stent, palpitations, shortness of breat with exertion or chest pain Psych Psychiatric: No depression, anxiety or hearing voices Resp Respiratory: No shortness of breath, No sleep apnea, No cough, No COPD, No asthma, No emphysema and No wheezing Gastro Gastrointestinal: Yes abdominal pain, Yes nausea or vomiting, No diarrhea, Yes constipation, No blood in stool, No acid reflux, No hemorrhoids, No ulcers, Yes gallbladder problem and No black,tarry stools Bennett Hematologic: No blood thinners, No blood disorders, No bleeding, No anemia and No blood clots Neuro Neurologic: No numbness and No tingling Exam Const General: cooperative, healthy appearing, comfortable and no acute distress [facility] Head: normocephalic and atraumatic Neck Neck: supple Resp Effort & Inspection: normal respiratory effort Cardio Rate: regular rate GI Inspection: non-distended Palpation: soft, no hernias and tender Skin General: no rashes or lesions noted Neuro General: CN's II-XI intact bilaterally Extrem General: normal to inspection Psych Mental Status: mental status grossly normal Attitude: cooperative Assessment and Plan Assessment and Plan (1) GERD (gastroesophageal reflux disease): Status: Acute (2) Cholelithiasis: Status: Acute (3) Influenza A: Status: Acute (4) Elevated liver enzymes: Status: Acute Medications: New omeprazole swallow whole; do not crush, chew, dissolve, cut, break 40 mg PO QDAY 30 caps 5RF sucralfate Take an hour before meals and at bedtime 1 g PO QACHS 56 tabs 0RF Discontinued pantoprazole Discontinued Reason: Order Changed 40 mg PO DAILY 30 tabs 0RF Plan Did personally review ultrasound and CT abdomen pelvis. Did discuss with patient that cholelithiasis does not fit the etiology as patient did not have pain after eating fatty or greasy foods pain typically occurred in the middle of the night along with nausea and vomiting?would fit with more gastric etiology. Will send patient in omeprazole as well as Carafate and plan for an EGD. Patient's elevated liver functions have improved unsure of etiology as gallbladder?showing signs of inflammation on ultrasound or CAT scan so not likely the cause patient has a 1.3 cm stone that was not in the neck of the gallbladder on ultrasound and no other stones were seen. I have discussed the above with the patient. I have offered the patient esophagogastroduodenoscopy for evaluation. I have explained the risks/benefits of the procedure and described the procedure. I have discussed the risks with the patient, including but not limited to: infection, bleeding, perforation of the GI tract requiring emergency surgery, inability to complete the procedure, injury to any internal organs, complications of anesthesia, etc. - the patient understands and agrees to proceed. I have answered all the patient's questions to the patient's satisfaction and the patient has no further questions. Dodie Leon M.D. Pager: [phone] [facility] [address] [place] [address], [address] [place] [address] Office: [phone] Coding Level of Care Code Off vis,new,level 4 Diagnoses GERD (gastroesophageal reflux disease) K21.9 Cholelithiasis K80.20 Influenza A J10.1 Elevated liver enzymes R74.8 02/11/24 1123 <Electronically signed by Dodie Leon MD> Date Dodie Leon MD
[2024-02-20 12:46] VITALS: PULSE 77; RESP 16; TEMP 36.4; O2SAT 100; BMI 26.9
[2024-02-20] MEDS: Lactated Ringers 1,000 ML 15 ML IV (12:49)
--- NOTE | 2024-02-20 13:30 | IMM_PTH ---
PATIENT: KRYSTAL MACKEY LOC: [facility] U#:[id number] AGE/SX: 43/F ROOM: RE02/20/[address]: Dr. Dodie Leon MD : 1980 BED: DIS: 02/20/2024 SPEC #: [id number] RECD: 02/23/24 10:25 STATUS: AUGUST RERey #: [id number] BASSAM: 02/20/24 13:[address]: Dodie Leon DEPT: IMMUNOHISTOCHEMISTRY RECD BY: Compa Rouse ENTERED: 02/23/24 10:26 SP TYPE: IMMUNO OTHR DR: No Primary Care Phys Tissues: A - Stomach, NOS Procedures: H Pylori (initial) PHYSICIAN & INSTITUTION [facility] [id number] SPECIMEN INFORMATION: Tissue Source: A- Ulcer antrum Clinical Info: GERD Specimen Number: [id number] CPT code: 04619 METHODOLOGY: Deparaffinized sections of prefer/formalin-fixed tissue or PAP/DQ stained slides are incubated with monoclonal/polyclonal antibodies/oligonucleotide probes. Localization is made via biotin free immunoperoxidase method. Appropriate controls are performed and reacted as expected. Results on target cell population are indicated in the following table: RESULTS: ANTIBODY / CLONE RESULT Block A H Pylori (polyclonal) negative These tests were developed and their performance characteristics determined by [facility]. They may not have been cleared or approved by the U.S. Food and Drug Administration. The FDA has determined that such clearance or approval is not necessary. The above immunohistochemical/dualISH markers are ordered and reviewed by the Pathologist. INTERPRETATION: A. Ulcer antrum, biopsy: Negative for Helicobacter pylori organisms. LUCIEN/ 02/24/2024
[2024-02-20 13:35] VITALS: BP 105/61; BP 83/66; PULSE 63; RESP 18; TEMP 36.6; O2SAT 96
--- NOTE | 2024-02-20 13:37 | OP.EGD_ITS ---
Patient Name: Ynes Miranda Procedure Date: 02/20/2024 1:09 PM Date of : 1980 Age: 43 Procedure: Upper GI endoscopy Indications: Heartburn Providers: Dodie Leon MD Medicines: Monitored Anesthesia Care Patient Profile: This is a 43 year old female. Complications: No immediate complications. Procedure: Pre-Anesthesia Assessment: - Prior to the procedure, a History and Physical was performed, and patient medications and allergies were reviewed. The patient's tolerance of previous anesthesia was also reviewed. The risks and benefits of the procedure and the sedation options and risks were discussed with the patient. All questions were answered, and informed consent was obtained. Prior Anticoagulants: The patient has taken no anticoagulant or antiplatelet agents. ASA Grade Assessment: Per anesthesia. After reviewing the risks and benefits, the patient was deemed in satisfactory condition to undergo the procedure. After obtaining informed consent, the endoscope was passed under direct vision. Throughout the procedure, the patient's blood pressure, pulse, and oxygen saturations were monitored continuously. The gastroscope was introduced through the mouth, and advanced to the second part of duodenum. The upper GI endoscopy was accomplished without difficulty. The patient tolerated the procedure well. Scope In: 1:22:45 PM Scope Out: 1:27:33 PM Total Procedure Duration Time 0 hours 4 minutes 48 seconds Findings: The Z-line was regular and was found 35 cm from the incisors. One non-bleeding superficial gastric ulcer with no stigmata of bleeding was found in the gastric antrum. The lesion was 15 mm in largest dimension. Biopsies were taken with a cold forceps for histology. Biopsies were taken with a cold forceps for Helicobacter pylori cultures. Mildly erythematous mucosa without active bleeding and with no stigmata of bleeding was found in the duodenal bulb. The cardia and gastric fundus were normal on retroflexion. Localized mild mucosal changes characterized by discoloration were found in the proximal esophagus. Biopsies were taken with a cold forceps for histology. Impression: - Z-line regular, 35 cm from the incisors. - Non-bleeding gastric ulcer with no stigmata of bleeding. Biopsied. - Erythematous duodenopathy. - Discolored mucosa in the esophagus. Biopsied. Recommendation: - Await pathology results. - Discharge patient to home. - Resume previous diet. - Continue present medications. Procedure Code(s): --- Professional --- 18432, Esophagogastroduodenoscopy, flexible, transoral; with biopsy, single or multiple Diagnosis Code(s): --- Professional --- K25.9, Gastric ulcer, unspecified as acute or chronic, without hemorrhage or perforation K31.89, Other diseases of stomach and duodenum R12, Heartburn CPT copyright 2021 [employer]. All rights reserved. The codes documented in this report are preliminary and upon experimental psychologist review may be revised to meet current compliance requirements. MD Dodie Bettencourt MD 02/20/2024 1:37:10 PM This report has been signed electronically. Number of Addenda: 0 Note Initiated On: 02/20/2024 1:09 PM
--- NOTE | 2024-02-20 13:38 | OP.CCLET_ITS ---
02/20/2024 No Primary Care Physician Re : Upper GI endoscopy procedure for Ynes Miranda Dear Care Physician This procedure was performed on Tuesday, February 20, 2024. My impressions and recommendations are as follows: Impressions : - Z-line regular, 35 cm from the incisors. - Non-bleeding gastric ulcer with no stigmata of bleeding. Biopsied. - Erythematous duodenopathy. - Discolored mucosa in the esophagus. Biopsied. Recommendations : - Await pathology results. - Discharge patient to home. - Resume previous diet. - Continue present medications. My findings are described in the full procedure note, which is enclosed. If I can be of further assistance, please feel free to contact me at Doctor phone number(s): , Work: . Sincerely, MD Dodie Bettencourt MD 02/20/2024 1:37:10 PM This report has been signed electronically.
[2024-02-20 13:40] VITALS: BP 105/61; BP 93/65; PULSE 73; RESP 18; O2SAT 96
[2024-02-20 13:44] VITALS: BP 105/61; BP 91/62; PULSE 68; RESP 18; O2SAT 100
[2024-02-20 13:49] VITALS: BP 105/61; BP 85/62; RESP 18; TEMP 36.6; O2SAT 100
[2024-02-20 14:14] VITALS: BP 105/61
== END 2024-02-20 14:36 | disposition home or self-care (01) ==
LOC: EN 12:13 → AC 12:15
PROVIDERS: Visit Provider Surgery
PROC: 0DJ08ZZ Inspection of Upper Intestinal Tract, Via Natural or Artificial Opening Endoscopic (ICD-10-PCS; CPT 43235; principal; 2024-02-20 13:25)
DX: K25.9 Gastric ulcer, unspecified as acute or chronic, without hemorrhage or perforation (principal); K29.30 Chronic superficial gastritis without bleeding; K80.20 Calculus of gallbladder without cholecystitis without obstruction; K21.9 Gastro-esophageal reflux disease without esophagitis; F32.A Depression, unspecified; F10.90 Alcohol use, unspecified, uncomplicated; R74.01 Elevation of levels of liver transaminase levels; Z79.899 Other long term (current) drug therapy
CPT/HCPCS: 43239; 88305; 88313; 88342; J7120; J2405

== ENCOUNTER → 2025-01-12 | Outpatient (CLI) | payer MEDICAID, SELFPAY ==
[2025-01-12 20:30] LABS: Anion Gap 14 (5-15); BUN 11 mg/dL (4-19); BUN/Creat Ratio 18.3 RATIO (10-20); Calcium 9.7 mg/dL (7.6-11.0); Chloride 103 mmol/L (96-108); Creatinine, Serum 0.6 mg/dL (0.6-1.0); EST Glomerular Filtration Rate 112 (>60); Glucose 86 mg/dL (70-99); Potassium 3.7 mmol/L (3.3-5.1); Sodium Level 138 mmol/L (133-145)
[2025-01-17 08:07] LABS: HPV APTIMA, High Risk Negative (Negative)
== END | disposition home or self-care (01) ==
LOC: BWCLAB 14:42
PROVIDERS: Referring Provider Obstetrics & Gynecology; Visit Provider Obstetrics & Gynecology
DX: D06.9 Carcinoma in situ of cervix, unspecified (principal); Z12.4 Encounter for screening for malignant neoplasm of cervix
CPT/HCPCS: 36415; 80048; 87624; 88175; G0145

== ENCOUNTER → 2025-01-15 | Outpatient (CLI) | payer MEDICAID, SELFPAY ==
--- NOTE | 2025-01-15 10:31 | US_ITS ---
PROCEDURE: THYROID REASON FOR EXAM: Difficulty swallowing TECHNIQUE: Thyroid ultrasound COMPARISON: None. FINDINGS: Right thyroid lobe measures 4.5 x 1.3 x 1.5 cm. Left thyroid lobe measures 4.2 x 1.4 x 1.3 cm. Isthmus thickness is0.3 cm. Thyroid Size: Normal Background Echotexture: Homogeneous Thyroid Nodules: None US/Thyroid IMPRESSION: NORMAL THYROID ULTRASOUND Reading Location: [facility]
== END | disposition home or self-care (01) ==
LOC: US 10:25
PROVIDERS: Referring Provider Obstetrics & Gynecology; Visit Provider Obstetrics & Gynecology
DX: R13.10 Dysphagia, unspecified (principal)
CPT/HCPCS: 76536

== ENCOUNTER 2025-09-26 11:59 | Outpatient (CLI) | payer MEDICAID, SELFPAY ==
--- NOTE | 2025-09-26 12:30 | BI_ITS ---
EXAM: BI/SCRN MAMM (CAD)W/SAMIR BILAT
== END 2025-09-26 23:59 | disposition home or self-care (01) ==
LOC: OPBI 11:59
PROVIDERS: Referring Provider Nurse Practitioner Family; Visit Provider Nurse Practitioner Family
DX: Z12.31 Encounter for screening mammogram for malignant neoplasm of breast (principal); N95.1 Menopausal and female climacteric states
CPT/HCPCS: 36415; 77063; 77067; 80053; 80061; 82306; 82607; 82670; 84439; 84443; 85025

== ENCOUNTER → 2025-09-26 | Outpatient (CLI) | payer MEDICAID, SELFPAY ==
[2025-09-26 12:21] LABS: Hematocrit 39.5 % (37-47); Hemoglobin 13.2 g/dL (12.0-15.0); Immature Granulocytes Count 0.020 X10^3/uL (0.0-0.0); Mean Corp Hgb Conc 33.4 g/dL (32-36); Mean Corpuscular Volume 85.5 fL (81-99); Mean Platelet Vol. 9.2 fl (6.2-12.0); NRBC Flagged by Analyzer 0 % (0-5); Platelet Count 336 K/mm3 (150-450); RBC Distribution Width CV 13.1 % (11.6-14.6); RBC Distribution Width SD 40.3 fl (35.1-43.9); Red Blood Count 4.62 M/mm3 (4.2-5.4); White Blood Count 7.7 K/mm3 (4.4-11.0)
[2025-09-26 13:12] LABS: AST(SGOT) 20 U/L (<=31); Alanine Aminotransfer ALT/SGPT 21 U/L (<=34); Albumin, Serum 4.4 g/dL (3.5-5.0); Alkaline Phosphatase 51 U/L (35-104); Anion Gap 11 (5-15); BUN 12 mg/dL (4-19); BUN/Creat Ratio 15.8 RATIO (10-20); Calcium,Total 9.1 mg/dL (7.6-11.0); Carbon Dioxide 24.3 mmol/L (21.0-32.0); Chloride 105 mmol/L (98-108); Cholesterol 173 mg/dL (<=200); Globulin 2.3 g/dL (2.2-4.2); Glucose 99 mg/dL (70-99); Low Density Lipoprotein Calc. 90 mg/dL; Potassium 4.1 mmol/L (3.3-5.1); Triglycerides 105 mg/dL; Very Low Density Lipoprotein 21 mg/dL (5-40); Vitamin B12 375 pg/mL (180-914); Vitamin D,25 Hydroxy 43.0 ng/mL (30-100); cholesterol:hdl ratio screen 2.69
== END | disposition home or self-care (01) ==
PROVIDERS: Visit Provider Nurse Practitioner Family
DX: N95.1 Menopausal and female climacteric states (principal)
CPT/HCPCS: 36415; 80053; 80061; 82306; 82607; 82670; 84439; 84443; 85025